=== PATIENT | male | born 1995 | race Caucasian/White ===

== ENCOUNTER 2017-02-25 04:05 | Emergency (ER) | payer OTHER ==
[2017-02-25] MEDS ORDERED: methylPREDNISolone 125 MG* 2 ML VIAL IV ONE (04:15)
[2017-02-25] MEDS ORDERED: Albuterol/Ipratropium NEB.SOL* Albuterol 2.5 MG/Ipratropium 0.5 MG 3 ML INH ONE (04:15)
[2017-02-25] MEDS ORDERED: NS 0.9% 1000 ML* 1,000 ML IV SCH (04:15)
[2017-02-25 05:44] LABS: Hematocrit 43 % (42-52); Hemoglobin 14.7 g/dl (14.0-18.0); Mean Corpuscular HGB Conc 34 g/dl (31-36); Mean Corpuscular Hemoglobin 29 pg (27-31); Mean Corpuscular Volume 84 fL (80-94); Mean Platelet Volume 9 um3 (7.4-10.4); Red Blood Count 5.12 10^6/ul (4.0-5.4); Red Cell Distribution Width 13 % (10.5-15); White Blood Count 4.5 10^3/ul (3.5-10.8)
[2017-02-25 06:06] LABS: Albumin 4.6 g/dL (3.2-5.2); BUN/Creatinine Ratio 22.1 (8-20); C Reactive Protein 5.2 mg/L (< 5.00); Calcium 9.5 mg/dL (8.6-10.3); EGFR African American 147.3 (>60); EGFR Non-African American 114.6 (>60); Globulin 2.6 g/dL (2-4); Magnesium 2.4 mg/dL (1.9-2.7); Potassium 3.6 mmol/L (3.5-5.0); Total Bilirubin 0.4 mg/dL (0.2-1.0); Total Protein 7.2 g/dL (6.4-8.9)
[2017-02-25 06:33] LABS: TSH (Thyroid Stimulating Horm) 1.9 mcIU/mL (0.34-5.60)
[2017-02-25] MEDS ORDERED: Albuterol HFA INHALER* 8 gm MDI INH ONE (06:46)
--- NOTE | 2017-02-25 06:50 | ED ---
Anjel Dyson Rebecca, scribed for Kishore Cervantes MD on 02/25/17 at 0432 . Shortness of Breath - HPI Summary HPI Summary: Pt is a 21 y/o M BIBA who presents to ED c/o SOB characterized as dyspnea at rest. Sx have been present for 2 days, worsening this morning when he was trying to sleep. States he is having difficulty taking deep breaths. Pt was given 1 Duoneb Tx [employer] by EMS. EMS treatments slightly alleviated sx, sx aggravated by nothing. Additionally c/o nasal congestion and mild sore throat. Denies CP, cough, rhinorrhea and calf pain. PMHx asthma and seasonal allergies. Confirms he has an inhaler, though he did not take it to school with him. - History of Current Complaint Hx Obtained From: Patient Onset/Duration: Lasting Days - 2 days, Still Present, Worse Since - this morning Dyspnea At: Rest Aggrevating Factors: Nothing Alleviating Factors: EMS Tx Associated Signs & Symptoms: Nasal Congestion - Allergy/Home Medications Allergies/Adverse Reactions: Allergies Allergy/AdvReac Type Severity Reaction Status Date / Time No Known Allergies Allergy Verified 02/25/17 04:15 PMH/Surg Hx/FS Hx/Imm Hx Endocrine/Hematology History: Denies: Hx Diabetes Respiratory History: Reports: Hx Asthma, Hx Seasonal Allergies - Family History Known Family History: Positive: Cardiac Disease - Social History Alcohol Use: None Substance Use Type: Reports: None Smoking Status (MU): Never Smoked Tobacco Review of Systems Positive: Sore Throat, Other - Nasal congestion. Negative: Nasal Discharge Negative: Chest Pain Positive: Shortness Of Breath. Negative: Cough Positive: Other - NEGATIVE: Calf pain All Other Systems Reviewed And Are Negative: Yes Physical Exam - Summary Physical Exam Summary: General: well-appearing, no pain distress Skin: warm, color reflects adequate perfusion, dry Head: normal Eyes: EOMI, LETICIA ENT: normal Neck: supple, nontender Respiratory: CTA, breath sounds present Cardiovascular: RRR Abdomen: soft, nontender Bowel: present Musculoskeletal: normal, strength/ROM intact Neurological: normal, sensory/motor intact, A&O x3 Psychological: anxious Triage Information Reviewed: Yes Vital Signs On Initial Exam: Initial Vitals Temp Pulse Resp BP Pulse Ox 98 F 66 18 123/75 98 02/25/17 04:05 02/25/17 04:05 02/25/17 04:05 02/25/17 04:05 02/25/17 04:05 Vital Signs Reviewed: Yes Diagnostics - Vital Signs Vital Signs Temp Pulse Resp BP Pulse Ox 02/25/17 06:00 69 98 02/25/17 05:32 80 99 02/25/17 05:30 123/83 02/25/17 04:53 79 97 02/25/17 04:31 73 20 100 02/25/17 04:05 98 F 66 18 123/75 98 - Laboratory Lab Results: Lab Results 02/25/17 02/25/17 02/25/17 Range/Units 05:30 05:30 05:30 WBC 4.5 (3.5-10.8) 10^3/ul RBC 5.12 (4.0-5.4) 10^6/ul Hgb 14.7 (14.0-18.0) g/dl Hct 43 (42-52) % MCV 84 (80-94) fL MCH 29 (27-31) pg MCHC 34 (31-36) g/dl RDW 13 (10.5-15) % Plt Count 158 (150-450) 10^3/ul MPV 9 (7.4-10.4) um3 Neut % (Auto) 42.9 (38-83) % Lymph % (Auto) 44.0 (25-47) % [place] % (Auto) 10.8 H (1-9) % Eos % (Auto) 1.8 (0-6) % Baso % (Auto) 0.5 (0-2) % Absolute Neuts (auto) 1.9 (1.5-7.7) 10^3/ul Absolute Lymphs (auto) 2.0 (1.0-4.8) 10^3/ul Absolute Monos (auto) 0.5 (0-0.8) 10^3/ul Absolute Eos (auto) 0.1 (0-0.6) 10^3/ul Absolute Basos (auto) 0 (0-0.2) 10^3/ul Absolute Nucleated RBC 0 10^3/ul Nucleated RBC % 0 INR (Anticoag Therapy) 0.93 (0.89-1.11) APTT 29.2 (26.0-36.3) seconds D-Dimer, Quantitative < 200 (Less Than 230) ng/mL Sodium 136 (133-145) mmol/L Potassium 3.6 (3.5-5.0) mmol/L Chloride 102 (101-111) mmol/L Carbon Dioxide 28 (22-32) mmol/L Anion Gap 6 (2-11) mmol/L BUN 19 (6-24) mg/dL Creatinine 0.86 (0.67-1.17) mg/dL Est GFR ( Amer) 147.3 (>60) Est GFR (Non-Af Amer) 114.6 (>60) BUN/Creatinine Ratio 22.1 H (8-20) Glucose 104 H (70-100) mg/dL Lactic Acid (0.5-2.0) mmol/L Calcium 9.5 (8.6-10.3) mg/dL Magnesium 2.4 (1.9-2.7) mg/dL Total Bilirubin 0.40 (0.2-1.0) mg/dL AST 14 (13-39) U/L ALT 16 (7-52) U/L Alkaline Phosphatase 39 (34-104) U/L Total Creatine Kinase 91 (10-223) U/L CK-MB (CK-2) 1.7 (0.6-6.3) ng/mL Troponin I 0.00 (<0.04) ng/mL C-Reactive Protein 5.20 H (< 5.00) mg/L B-Natriuretic Peptide ( - 100) pg/mL Total Protein 7.2 (6.4-8.9) g/dL Albumin 4.6 (3.2-5.2) g/dL Globulin 2.6 (2-4) g/dL Albumin/Globulin Ratio 1.8 (1-3) Lipase 16 (11.0-82.0) U/L TSH 1.90 (0.34-5.60) mcIU/mL 02/25/17 02/25/17 Range/Units 05:30 05:30 WBC (3.5-10.8) 10^3/ul RBC (4.0-5.4) 10^6/ul Hgb (14.0-18.0) g/dl Hct (42-52) % MCV (80-94) fL MCH (27-31) pg MCHC (31-36) g/dl RDW (10.5-15) % Plt Count (150-450) 10^3/ul MPV (7.4-10.4) um3 Neut % (Auto) (38-83) % Lymph % (Auto) (25-47) % [place] % (Auto) (1-9) % Eos % (Auto) (0-6) % Baso % (Auto) (0-2) % Absolute Neuts (auto) (1.5-7.7) 10^3/ul Absolute Lymphs (auto) (1.0-4.8) 10^3/ul Absolute Monos (auto) (0-0.8) 10^3/ul Absolute Eos (auto) (0-0.6) 10^3/ul Absolute Basos (auto) (0-0.2) 10^3/ul Absolute Nucleated RBC 10^3/ul Nucleated RBC % INR (Anticoag Therapy) (0.89-1.11) APTT (26.0-36.3) seconds D-Dimer, Quantitative (Less Than 230) ng/mL Sodium (133-145) mmol/L Potassium (3.5-5.0) mmol/L Chloride (101-111) mmol/L Carbon Dioxide (22-32) mmol/L Anion Gap (2-11) mmol/L BUN (6-24) mg/dL Creatinine (0.67-1.17) mg/dL Est GFR ( Amer) (>60) Est GFR (Non-Af Amer) (>60) BUN/Creatinine Ratio (8-20) Glucose (70-100) mg/dL Lactic Acid 1.0 (0.5-2.0) mmol/L Calcium (8.6-10.3) mg/dL Magnesium (1.9-2.7) mg/dL Total Bilirubin (0.2-1.0) mg/dL AST (13-39) U/L ALT (7-52) U/L Alkaline Phosphatase (34-104) U/L Total Creatine Kinase (10-223) U/L CK-MB (CK-2) (0.6-6.3) ng/mL Troponin I (<0.04) ng/mL C-Reactive Protein (< 5.00) mg/L B-Natriuretic Peptide 7 ( - 100) pg/mL Total Protein (6.4-8.9) g/dL Albumin (3.2-5.2) g/dL Globulin (2-4) g/dL Albumin/Globulin Ratio (1-3) Lipase (11.0-82.0) U/L TSH (0.34-5.60) mcIU/mL Result Diagrams: 02/25/17 05:30 02/25/17 05:30 Lab Statement: Any lab studies that have been ordered have been reviewed, and results considered in the medical decision making process. - Radiology CXR Xray Interpretation: No Acute Changes - NAD. Radiology Interpretation Completed By: ED Physician - EKG 0419 Cardiac Rate: NL EKG Rhythm: Sinus Rhythm - NSR, [address] Segment: Normal - NL ST Ectopy: None Re-Evaluation - Re-Evaluation First Eval Re-Evaluation Time: 06:46 Change: Improved Comment: patient sx have significantly improved Course/Dx - Course Assessment/Plan: Medications reviewed. Elevated BP noted and advised f/u with PCP. IMPROVED IN ED AFTER DUONEB AND SOLUMEDROL. DISCUSSED RESULTS WITH PATIENT. WILL GIVE ALBUTEROL INHALER; F/U [facility]; RETURN IF WORSE. PATIENT WONDERS IF ANXIETY CAUSED THE ATTACK HE HAS 2 PRELIMS COMING UP. CRITICAL CARE TIME LESS THAN 30 MINUTES. - Diagnoses Provider Diagnoses: Dyspnea Discharge - Discharge Plan Condition: Stable Disposition: HOME Patient Education Materials: Dyspnea (ED) Referrals: [facility] - [place]on ZAVALA [Primary Care Provider] - Additional Instructions: FOLLOW UP WITH [facility]. USE THE ALBUTEROL DIRECTED NEEDED IF HELPFUL. RETURN TO THE EMERGENCY DEPARTMENT FOR ANY WORSENING OF YOUR CONDITION OR QUESTIONS OR CONCERNS. The documentation as recorded by the Anjel tejada Rebecca accurately reflects the service I personally performed and the decisions made by me, Kishore Cervantes MD.
[2017-02-25 06:59] VITALS: BP 113/70
--- NOTE | 2017-02-25 08:23 | RAD ---
INDICATION: Shortness of breath. COMPARISON: There are no prior studies available for comparison. TECHNIQUE: Dual-energy PA and lateral views of the chest were obtained. FINDINGS: The heart is within normal limits in size. Mediastinal and hilar contours appear within normal limits. The lungs are clear. No pleural effusion is present. IMPRESSION: NO EVIDENCE FOR ACTIVE CARDIOPULMONARY DISEASE.
== END 2017-02-25 07:03 | disposition home or self-care (01) ==
LOC: ED 04:05 → MERGE 04:05 → ED 07:03
DX: R06.00 Dyspnea, unspecified (principal); R09.81 Nasal congestion; J02.9 Acute pharyngitis, unspecified; J45.909 Unspecified asthma, uncomplicated
CPT/HCPCS: 36415; 71020; 80053; 82550; 82553; 83605; 83690; 83735; 83880; 84443; 84484; 85025; 85379; 85610; 85730; 86140; 86703; 93005; 94640; 96374; 99283; A9270-GY; J2930

== ENCOUNTER 2018-01-09 21:23 | Emergency (ER) | payer OTHER ==
[2018-01-09] MEDS ORDERED: Ketorolac INJ* 30 MG/ML 1 ML VIAL IV PUSH ONE (21:49)
[2018-01-09] MEDS ORDERED: Acetaminophen TAB* 325 MG PO ONE (21:49)
[2018-01-09] MEDS ORDERED: NS 0.9% 1000 ML* 1,000 ML IV ONE (21:49)
[2018-01-09] MEDS ORDERED: Albuterol/Ipratropium NEB.SOL* Albuterol 2.5 MG/Ipratropium 0.5 MG 3 ML INH ONE (21:50)
[2018-01-09] MEDS ORDERED: Albuterol/Ipratropium NEB.SOL* Albuterol 2.5 MG/Ipratropium 0.5 MG 3 ML ONE (22:00)
[2018-01-09 22:08] LABS: ABS Basophils 0 10^3/ul (0-0.2); ABS Eosinophils 0 10^3/ul (0-0.6); ABS Lymphocytes 1.1 10^3/ul (1.0-4.8); ABS Monocytes 0.5 10^3/ul (0-0.8); ABS Neutrophils 3.3 10^3/ul (1.5-7.7); ABS Nucleated RBC 0 10^3/ul; Eosinophil % 0 % (0-6); Hematocrit 45 % (42-52); Hemoglobin 15.3 g/dl (14.0-18.0); Lymphocyte % 21.7 % (25-47); Mean Corpuscular HGB Conc 34 g/dl (31-36); Mean Corpuscular Hemoglobin 29 pg (27-31); Mean Corpuscular Volume 84 fL (80-94); Mean Platelet Volume 8.4 um3 (7.4-10.4); Nucleated Red Blood Cells % 0.2; Platelet Count 153 10^3/ul (150-450); Red Blood Count 5.34 10^6/ul (4.00-5.40); Red Cell Distribution Width 13 % (10.5-15); White Blood Count 4.9 10^3/ul (3.5-10.8)
[2018-01-09 22:26] LABS: EGFR Non-African American 79.5 (>60)
[2018-01-10] MEDS ORDERED: Levofloxacin TAB* 250 MG PO ONE (00:13)
--- NOTE | 2018-01-10 00:28 | ED ---
Shortness of Breath - HPI Summary HPI Summary: Patient is a 22 y/o M BIBA w/ c/o SOB exacerbation onsetting around 1400 today. He has Hx of asthma with anxiety and allergies as a cause and states that he has been experiencing intermittent episodes of SOB for the past year. Patient also reports cough as well with yellow/green phlegm. He also reports the presence of a MANSFIELD. Patient denies N/V/D. On triage, severity is rated 8/10 and nothing is noted to aggravate/alleviates Sx. Home medications and allergies are reviewed. - History of Current Complaint Chief Complaint: EDShortnessOfBreath Time Seen by Provider: 01/09/18 21:42 Hx Obtained From: Patient Onset/Duration: Lasting Hours - onset today at 1400, Still Present Current Severity: Severe - 8/10 Aggrevating Factors: Nothing Alleviating Factors: Nothing Associated Signs & Symptoms: Cough (Productive) - green/yellow phlegm - Allergy/Home Medications Allergies/Adverse Reactions: Allergies Allergy/AdvReac Type Severity Reaction Status Date / Time apple Allergy See Comment Verified 01/09/18 21:50 espinoza Allergy See Comment Verified 01/09/18 21:50 PMH/Surg Hx/FS Hx/Imm Hx Endocrine/Hematology History: Denies: Hx Diabetes, Hx Thyroid Disease Cardiovascular History: Denies: Hx Hypertension Respiratory History: Reports: Hx Asthma, Hx Seasonal Allergies Denies: Hx Chronic Obstructive Pulmonary Disease (COPD) GI History: Denies: Hx Ulcer - Immunization History Date of Tetanus Vaccine: utd Date of Influenza Vaccine: fall 2016 Immunizations Up to Date: Yes Infectious Disease History: No Infectious Disease History: Denies: Hx Hepatitis, Hx Human Immunodeficiency Virus (HIV), Traveled Outside the [place] in Last 30 Days - Family History Known Family History: Positive: Cardiac Disease - Social History Alcohol Use: None Substance Use Type: Reports: None Substance Use Comment - Amount & Last Used: Smoking Status (MU): Never Smoked Tobacco Review of Systems Positive: Shortness Of Breath, Cough - productive of green/yellow phlegm Negative: Vomiting, Diarrhea, Nausea Positive: Headache All Other Systems Reviewed And Are Negative: Yes Physical Exam - Summary Physical Exam Summary: Appearance: Anxious appearing, no pain distress Skin: warm, dry, reflects adequate perfusion Head/face: normal Eyes: EOMI, LETICIA ENT: normal Neck: supple, non-tender Respiratory: CTA, breath sounds present; tachypnea Cardiovascular: RRR, pulses symmetrical; no tachycardia Abdomen: non-tender, soft Bowel Sounds: present Musculoskeletal: normal, strength/ROM intact Neuro: normal, sensory motor intact, A&Ox3 Triage Information Reviewed: Yes Vital Signs On Initial Exam: Initial Vitals Pulse BP Pulse Ox 105 144/87 97 01/09/18 21:34 01/09/18 21:34 01/09/18 21:34 Vital Signs Reviewed: Yes Diagnostics - Vital Signs Vital Signs Temp Pulse Resp BP Pulse Ox 01/09/18 23:36 102.5 F 01/09/18 23:11 121 126/70 94 01/09/18 22:06 114 100 01/09/18 22:04 113 135/86 100 01/09/18 22:00 104 100 01/09/18 21:39 103.3 F 107 18 144/87 99 01/09/18 21:34 105 144/87 97 - Laboratory Lab Results: Lab Results 01/09/18 01/09/18 01/09/18 Range/Units 21:53 21:53 21:53 WBC 4.9 (3.5-10.8) 10^3/ul RBC 5.34 (4.00-5.40) 10^6/ul Hgb 15.3 (14.0-18.0) g/dl Hct 45 (42-52) % MCV 84 (80-94) fL MCH 29 (27-31) pg MCHC 34 (31-36) g/dl RDW 13 (10.5-15) % Plt Count 153 (150-450) 10^3/ul MPV 8.4 (7.4-10.4) um3 Neut % (Auto) 67.7 (38-83) % Lymph % (Auto) 21.7 L (25-47) % [place] % (Auto) 10.1 H (0-7) % Eos % (Auto) 0 (0-6) % Baso % (Auto) 0.5 (0-2) % Absolute Neuts (auto) 3.3 (1.5-7.7) 10^3/ul Absolute Lymphs (auto) 1.1 (1.0-4.8) 10^3/ul Absolute Monos (auto) 0.5 (0-0.8) 10^3/ul Absolute Eos (auto) 0 (0-0.6) 10^3/ul Absolute Basos (auto) 0 (0-0.2) 10^3/ul Absolute Nucleated RBC 0 10^3/ul Nucleated RBC % 0.2 D-Dimer, Quantitative < 200 (Less Than 230) ng/mL Sodium 133 L (135-145) mmol/L Potassium 3.6 (3.5-5.0) mmol/L Chloride 97 L (101-111) mmol/L Carbon Dioxide 25 (22-32) mmol/L Anion Gap 11 (2-11) mmol/L BUN 14 (6-24) mg/dL Creatinine 1.17 (0.67-1.17) mg/dL Est GFR ( Amer) 96.2 (>60) Est GFR (Non-Af Amer) 79.5 (>60) BUN/Creatinine Ratio 12.0 (8-20) Glucose 94 (70-100) mg/dL Calcium 9.7 (8.6-10.3) mg/dL C-Reactive Protein 75.35 H (<8.01) mg/L Monoscreen Negative (Negative) Result Diagrams: 01/09/18 21:53 01/09/18 21:53 Lab Statement: Any lab studies that have been ordered have been reviewed, and results considered in the medical decision making process. - Radiology CXR Xray Interpretation: Positive (See Comments) Radiology Interpretation Completed By: ED Physician - right lower infiltrate Re-Evaluation - Re-Evaluation First Eval Re-Evaluation Time: 00:45 Change: Improved Comment: Patient is better after breathing treatment. He will be discharged to home and is agreeable with this plan. Course/Dx - Course Course Of Treatment: College student with fever, shortness of breath and developing infiltrate in the right lower lobe. Breathing treatments, fluids and treatment of fever here greatly relieved his symptoms. Started oral Levaquin here and will have him continue, follow closely with [facility]. - Diagnoses Differential Diagnosis/HQI/PQRI: Positive: Asthma, Bronchitis, Pneumonia, Other - Mononucleosis, viral etiology Provider Diagnoses: Pneumonia Discharge - Sign-Out/Discharge Documenting (check all that apply): Patient Departure - discharge - Discharge Plan Condition: Improved Disposition: HOME Prescriptions: Albuterol HFA INHALER* [Ventolin HFA Inhaler*] 2 puff INH Q4H PRN #1 mdi PRN Reason: Shortness Of Breath guaiFENesin [Mucinex] 600 mg PO BID #20 tab.er.12h Levofloxacin TAB* [Levaquin TAB*] 750 mg PO DAILY #6 tab Patient Education Materials: Community Acquired Pneumonia (ED) Forms: *School Release Referrals: [facility] - [place]on ZAVALA [Primary Care Provider] - Additional Instructions: Call first thing in the morning for an appointment with [facility]. Off school until the weekend. Return if increasing shortness of breath, continued fevers, worse or other concerns. Take Tylenol, ibuprofen as needed for fever. With persistent shortness of breath after infection is gone see [facility] who may be older refer you for pulmonary function testing. - Billing Disposition and Condition Condition: IMPROVED Disposition: Home - Attestation Statements Document Initiated by Abdiaziz: Yes Documenting Scribe: Jay Heredia Provider For Whom Abdiaziz is Documenting (Include Credential): Leonel Yip MD Scribe Attestation: I, Jay Heredia, scribed for Leonel Yip MD on 01/10/18 at 0639. Scribe Documentation Reviewed: Yes Provider Attestation: The documentation as recorded by the Jay tejada accurately reflects the service I personally performed and the decisions made by me, Leonel Yip MD
[2018-01-10 01:31] VITALS: BP 109/67
--- NOTE | 2018-01-10 07:45 | RAD ---
INDICATION: Short of breath COMPARISON: February 25, 2017 TECHNIQUE: PA and lateral dual-energy views were obtained. FINDINGS: Bones/Soft Tissues: There are no acute bony findings. Cardiomediastinal: The cardiomediastinal silhouette is normal. Lungs: There is a small peripheral interstitial infiltrate in the right lung base. The remaining lung delatorre are clear. Pleura: There are no pleural effusions. Other: None IMPRESSION: Right-sided pneumonitis. R0
== END 2018-01-10 00:50 | disposition home or self-care (01) ==
LOC: EDBD → ED 21:23
DX: J18.9 Pneumonia, unspecified organism (principal)
CPT/HCPCS: 36415; 71046; 80048; 85025; 85379; 86140; 86308; 96374; 99283; A9270-GY; J1885

== ENCOUNTER 2019-01-12 19:31 | Emergency (ER) | payer OTHER ==
[2019-01-12 19:39] VITALS: BP 117/76
--- NOTE | 2019-01-12 19:53 | ED ---
Palpitations / Dysrhythmia - HPI Summary HPI Summary: This patient is a 23 year old male presenting to [facility] with a chief complaint of palpitations 40 minutes ago. The patient states he was sitting and that his heart felt like it was popping out of its chest. He states he would feel many discrete, brief palpitations. He states it was getting worse once he called EMS. He describes it like a "vibration". He denies chest pain. He states he was having difficulty breathing and light headedness. He states he has had changes in his diet that he states he has been cleaning up. He states that he just moved back into school a couple days ago. He states he has just started getting on a new workout and diet routine. He states his father had an aortic valve replacement 12 years ago. - History of Current Complaint Chief Complaint: EDDysrhythmPalp Time Seen by Provider: 01/12/19 19:46 Hx Obtained From: Patient - Allergy/Home Medications Allergies/Adverse Reactions: Allergies Allergy/AdvReac Type Severity Reaction Status Date / Time No Known Allergies Allergy Verified 01/12/19 19:39 Home Medications: Home Medications Cholecalciferol (Vitamin D3) [Vitamin D3] 1,000 unit PO DAILY 01/12/19 [History Confirmed 01/12/19] PMH/Surg Hx/FS Hx/Imm Hx Endocrine/Hematology History: Denies: Hx Diabetes, Hx Thyroid Disease Cardiovascular History: Denies: Hx Hypertension Respiratory History: Reports: Hx Asthma, Hx Seasonal Allergies Denies: Hx Chronic Obstructive Pulmonary Disease (COPD) GI History: Denies: Hx Ulcer - Immunization History Date of Tetanus Vaccine: utd Date of Influenza Vaccine: fall 2016 Infectious Disease History: No Infectious Disease History: Denies: Hx Hepatitis, Hx Human Immunodeficiency Virus (HIV), Traveled Outside the [place] in Last 30 Days - Family History Known Family History: Positive: Cardiac Disease - Social History Alcohol Use: None Substance Use Type: Reports: None Substance Use Comment - Amount & Last Used: Smoking Status (MU): Never Smoked Tobacco Review of Systems Positive: Palpitations. Negative: Chest Pain Positive: Shortness Of Breath Neurological: Other - Light-headedness All Other Systems Reviewed And Are Negative: Yes Physical Exam - Summary Physical Exam Summary: Appearance: Well-appearing, Well-nourished, lying in bed comfortably Skin: Warm, dry, no obvious rash Eyes: sclera anicteric, no conjunctival pallor ENT: mucous membranes moist, pharynx appears normal Neck: Supple, nontender Respiratory: Clear to auscultation, no signs of respiratory distress Cardiovascular: Normal S1, S2. No murmurs. Normal distal pulses in tibial and radial bilaterally. Abdomen: Soft, nontender, normal active bowel sounds present Musculoskeletal: Normal, Strength/ROM Intact Neurological: A&Ox3, awake and alert, mentation is normal, speech is fluent and appropriate Psychiatric: affect is normal, does not appear anxious or depressed Triage Information Reviewed: Yes Vital Signs On Initial Exam: Initial Vitals Temp Pulse Resp BP Pulse Ox 98.8 F 81 18 117/76 100 01/12/19 19:34 01/12/19 19:34 01/12/19 19:34 01/12/19 19:34 01/12/19 19:34 Vital Signs Reviewed: Yes Diagnostics - Vital Signs Vital Signs Temp Pulse Resp BP Pulse Ox 01/12/19 19:34 98.8 F 81 18 117/76 100 - Laboratory Lab Statement: Any lab studies that have been ordered have been reviewed, and results considered in the medical decision making process. - EKG 1933 Cardiac Rate: NL - 84 BPM EKG Rhythm: Sinus Rhythm Summary of EKG Findings: NSR at 84 BPM, P waves, QRS complex, and T waves are within normal limits, T waves and intervals are normal, no ischemic changes. This is a normal EKG. Course/Dx - Course Course Of Treatment: This patient is a 23 year old male presenting to [facility] with a chief complaint of palpitations 40 minutes ago. The patients physical exam was unremarkable. His EKG was unremarkable for cardiovascular problems. From the patient's narrative he seems to be experiencing PACs. The patient was instructed on how to manage this problem. A plan for discharge was discussed with the patient and he was agreeable with this tplan. - Diagnoses Provider Diagnoses: PAC (premature atrial contraction), Palpitations Discharge ED - Sign-Out/Discharge Documenting (check all that apply): Patient Departure - Discharge Patient Received Moderate/Deep Sedation with Procedure: No - Discharge Plan Condition: Stable Disposition: HOME Patient Education Materials: Heart Palpitations (ED), Premature Atrial Contractions (ED) Referrals: [facility] - [place]on ZAVALA [Primary Care Provider] - If Needed Additional Instructions: If this sensation becomes sustained for more than 30 mins continuously, I would recommend coming back so we can recheck the heart rhythm, but from what you tell me I am quite sure that this is a benign phenomenon and not a cause for concern. If you continue to experience these periodically, I would recommend keeping track of your diet, as sometimes chemical in food can cause this. You may find something that is related to the symptoms. If that doesn't help, going to see a station tender might be in order, they may want to order an ambulatory heart rhythm monitoring test. - Billing Disposition and Condition Condition: STABLE Disposition: Home - Attestation Statements Document Initiated by Abdiaziz: Yes Documenting Scribe: Maikol Dumont Provider For Whom Abdiaziz is Documenting (Include Credential): Charlie Lee MD Scribe Attestation: IMaikol, scribed for Charlie Lee MD on 01/13/19 at 0533. Scribe Documentation Reviewed: Yes Provider Attestation: The documentation as recorded by the Maikol tejada accurately reflects the service I personally performed and the decisions made by me, Charlie Lee MD Status of Scribe Document: Viewed
== END 2019-01-12 20:06 | disposition home or self-care (01) ==
LOC: ED 19:31
DX: I49.1 Atrial premature depolarization (principal); R00.2 Palpitations; R06.02 Shortness of breath; R42 Dizziness and giddiness
CPT/HCPCS: 93005; 99282

== ENCOUNTER 2019-01-13 14:30 | Emergency (ER) | payer OTHER ==
--- NOTE | 2019-01-13 15:24 | ED ---
HPI Chest Pain - HPI Summary HPI Summary: This patient is a 23 year old M presenting to [facility] with a chief complaint of intermittent episodes of sharp chest pain rated 2/10 in severity since minutes prior to arrival. Patient reports bradycardia and occasional difficulty breathing. Patient denies bilateral lower extermity swelling. Patient states that his heart feels off." Symptoms aggravated by deep breathing. Symptoms alleviated by nothing. Patient previously seen on 01/12/19 in ED for palpitations. Patient states that he did a [address] on 01/08/19 (5 days ago) and denies any other recent travel. - History of Current Complaint Chief Complaint: EDDysrhythmPalp Time Seen by Provider: 01/13/19 15:01 Hx Obtained From: Patient Onset/Duration: Started Days Ago - 01/12/19, Still Present Timing: Intermittent Current Severity: Mild Pain Intensity: 2 Pain Scale Used: 0-10 Numeric Character: Slow Aggravating Factor(s): Deep Breaths Alleviating Factor(s): Nothing Associated Signs and Symptoms: Positive: Negative - bilateral lower extremity swelling, Other: - bradycardia and occasional difficutly breathing Related History: Similar Episode/Dx as: - palpatations on 01/12/19 - Allergy/Home Medications Allergies/Adverse Reactions: Allergies Allergy/AdvReac Type Severity Reaction Status Date / Time No Known Allergies Allergy Verified 01/13/19 14:36 PMH/Surg Hx/FS Hx/Imm Hx Endocrine/Hematology History: Denies: Hx Diabetes, Hx Thyroid Disease Cardiovascular History: Denies: Hx Hypertension Respiratory History: Reports: Hx Asthma, Hx Seasonal Allergies Denies: Hx Chronic Obstructive Pulmonary Disease (COPD) GI History: Denies: Hx Ulcer - Surgical History Surgical History: Yes Surgery Procedure, Year, and Place: Septoplasty July 2018 - Immunization History Date of Tetanus Vaccine: utd Date of Influenza Vaccine: fall 2016 Infectious Disease History: No Infectious Disease History: Denies: Hx Hepatitis, Hx Human Immunodeficiency Virus (HIV), Traveled Outside the [place] in Last 30 Days - Family History Known Family History: Positive: Cardiac Disease - Social History Alcohol Use: None Substance Use Type: Reports: None Hx Tobacco Use: No Smoking Status (MU): Never Smoked Tobacco Review of Systems Positive: Chest Pain, Other - bradycardia Positive: Shortness Of Breath Musculoskeletal: Negative - Bilateral lower extremity swelling All Other Systems Reviewed And Are Negative: Yes Physical Exam - Summary Physical Exam Summary: Appearance: The patient is well-nourished in no acute distress and in no acute pain. Skin: The skin is warm and dry and skin color reflects adequate perfusion. HEENT: The head is normocephalic and atraumatic. The pupils are equal and reactive. The conjunctivae are clear and without drainage. Nares are patent and without drainage. Mouth reveals moist mucous membranes and the throat is without erythema and exudate. The external ears are intact. The ear canals are patent and without drainage. The tympanic membranes are intact. Neck: The neck is supple with full range of motion and non-tender. There are no carotid bruits. There is no neck vein distension. Respiratory: Chest is non-tender. Lungs are clear to auscultation and breath sounds are symmetrical and equal. Cardiovascular: Heart is regular rate and rhythm. There is no murmur or rub auscultated. There is no peripheral edema and pulses are symmetrical and equal. Abdomen: The abdomen is soft and non-tender. There are normal bowel sounds heard in all four quadrants and there is no organomegaly palpated. Musculoskeletal: There is no back tenderness noted. Extremities are non-tender with full range of motion. There is good capillary refill. There is no peripheral edema or calf tenderness elicited. Neurological: Patient is alert and oriented to person, place and time. The patient has symmetrical motor strength in all four extremities. Cranial nerves are grossly intact. Deep tendon reflexes are symmetrical and equal in all four extremities. Triage Information Reviewed: Yes Vital Signs On Initial Exam: Initial Vitals Temp Pulse Resp BP Pulse Ox 98.4 F 74 16 112/89 99 01/13/19 14:34 01/13/19 14:34 01/13/19 14:34 01/13/19 14:34 01/13/19 14:34 Vital Signs Reviewed: Yes Diagnostics - Vital Signs Vital Signs Temp Pulse Resp BP Pulse Ox 01/13/19 14:34 98.4 F 74 16 112/89 99 - Laboratory Result Diagrams: 01/13/19 15:35 01/13/19 15:35 Lab Statement: Any lab studies that have been ordered have been reviewed, and results considered in the medical decision making process. - Radiology Chest Xray Radiology Interpretation Completed By: Radiologist Summary of Radiographic Findings: IMPRESSION: No active cardiopulmonary disease is noted. ED Physician has reviewed this report. - EKG 1528 Cardiac Rate: NL - 65 BPM EKG Rhythm: Sinus Rhythm ST Segment: Normal Ectopy: None Summary of EKG Findings: Normal sinus rhythm at 65 bpm, normal ST, no ectopy, no STEMI Chest Pain Course/Dx - Course Course Of Treatment: Mr. Galarza presented with a concern that he wasn't feeling right and pointing to his chest. He couldn't elaborate much was not having the same buzzing that he had the other night. He was placed on the monitor while labs were obtained. He was nontoxic in appearance with stable vitals. His labs at change some's since the with the CRP elevation, a leukopenia and a decreased ANC. This time a year I'm concerned for a tickborne illness. I did not see any ectopy or skipped beats on either EKG or the monitor. I'm going to start him on doxycycline and send off the outpatient labs. I'll have him follow-up at [facility]. - Diagnoses Provider Diagnoses: Tick-borne disease Discharge ED - Sign-Out/Discharge Documenting (check all that apply): Patient Departure - discharge Patient Received Moderate/Deep Sedation with Procedure: No - Discharge Plan Condition: Stable Disposition: HOME Prescriptions: DOXYcycline CAP(*) [DOXYcycline 100MG CAP(*)] 100 mg PO BID #42 cap Patient Education Materials: Lyme Disease (ED) Referrals: [facility] [Outside] - 3 Days Additional Instructions: Follow up with [facility] within 2 to 3 days. Return to Emergency Department for new or worsening symptoms such as fever or headache. - Billing Disposition and Condition Condition: STABLE Disposition: Home - Attestation Statements Document Initiated by Abdiaziz: Yes Documenting Scribe: Leatha Martin Provider For Whom Abdiaziz is Documenting (Include Credential): Charlie Chand MD Scribe Attestation: Leatha Dyson scribed for Charlie Chand MD on 01/13/19 at 1837. Scribe Documentation Reviewed: Yes Provider Attestation: The documentation as recorded by the pitoibeLeatha accurately reflects the service I personally performed and the decisions made by me, Charlie Chand MD Status of Scribe Document: Viewed
[2019-01-13 15:50] LABS: Hematocrit 45 % (42-52); Hemoglobin 15.4 g/dL (14.0-18.0); Mean Corpuscular HGB Conc 35 g/dL (31-36); Mean Corpuscular Hemoglobin 29 pg (27-31); Mean Corpuscular Volume 84 fL (80-94); Mean Platelet Volume 8.5 fL (7.4-10.4); Platelet Count 193 10^3/uL (150-450); Red Blood Count 5.27 10^6 /uL (4.18-5.48); Red Cell Distribution Width 13 % (10-15); White Blood Count 2.8 10^3/uL (3.5-10.8)
[2019-01-13 15:52] LABS: ABS Neutrophils 0.7 10^3/ul (1.5-7.7)
[2019-01-13 16:03] LABS: Albumin 4.6 g/dL (3.2-5.2); Albumin/Globulin Ratio 1.9 (1-3); BUN/Creatinine Ratio 15.6 (8-20); Calcium 9.8 mg/dL (8.6-10.3); EGFR African American 119.6 (>60); EGFR Non-African American 98.9 (>60); Globulin 2.4 g/dL (2-4); Magnesium 2.1 mg/dL (1.9-2.7); Potassium 3.9 mmol/L (3.5-5.0); Total Bilirubin 0.5 mg/dL (0.2-1.0)
[2019-01-13 16:38] LABS: ABS Eosinophils 0.1 10^3/ul (0-0.6); ABS Lymphocytes 1.7 10^3/ul (1.0-4.8); ABS Monocytes 0.3 10^3/ul (0-0.8); Eosinophil % 2.9 %; Lymphocyte % 60.2 %; Nucleated Red Blood Cells % 0.2
[2019-01-13 16:41] LABS: TSH (Thyroid Stimulating Horm) 0.85 mcIU/mL (0.34-5.60)
[2019-01-13] MEDS ORDERED: DOXYcycline CAP(*) 100 MG PO ONE (17:53)
[2019-01-13 18:09] VITALS: BP 117/76
[2019-01-16 17:49] LABS: Anaplasma phagocytophilum Negative (Negative); B. miyamotoi PCR, B Negative (Negative); Babesia divergens/MO-1 Negative (Negative); Babesia ducani Negative (Negative); Ehrlichia chaffeensis Negative (Negative); Ehrlichia ewingii/canis Negative (Negative); Ehrlichia muris eauclairensis Negative (Negative)
== END 2019-01-13 18:09 | disposition home or self-care (01) ==
LOC: ED 14:30
DX: A84.8 Other tick-borne viral encephalitis (principal); Z79.899 Other long term (current) drug therapy
CPT/HCPCS: 36415; 71046; 80053; 83605; 83735; 84443; 84484; 85025; 85060; 85379; 86618; 87798; 93005; 99282; A9270-GY

== ENCOUNTER 2019-02-25 22:24 | Emergency (ER) | payer OTHER ==
[2019-02-26 01:12] LABS: ABS Eosinophils 0.1 10^3/ul (0-0.6); ABS Lymphocytes 2.1 10^3/ul (1.0-4.8); ABS Monocytes 0.4 10^3/ul (0-0.8); ABS Neutrophils 1.5 10^3/ul (1.5-7.7); Eosinophil % 1.6 %; Hematocrit 46 % (42-52); Hemoglobin 15.4 g/dL (14.0-18.0); Lymphocyte % 51.2 %; Mean Corpuscular HGB Conc 34 g/dL (31-36); Mean Corpuscular Hemoglobin 29 pg (27-31); Mean Corpuscular Volume 86 fL (80-94); Mean Platelet Volume 8.9 fL (7.4-10.4); Nucleated Red Blood Cells % 0.2; Platelet Count 193 10^3/uL (150-450); Red Cell Distribution Width 14 % (10-15)
[2019-02-26 01:29] LABS: Albumin 4.5 g/dL (3.2-5.2); Albumin/Globulin Ratio 1.9 (1-3); BUN/Creatinine Ratio 17.5 (8-20); C Reactive Protein 1.55 mg/L (<8.01); Calcium 9.5 mg/dL (8.6-10.3); EGFR African American 98.1 (>60); EGFR Non-African American 81.1 (>60); Globulin 2.4 g/dL (2-4); Magnesium 2.5 mg/dL (1.9-2.7); Potassium 4.1 mmol/L (3.5-5.0); Total Bilirubin 0.5 mg/dL (0.2-1.0); Total Protein 6.9 g/dL (6.4-8.9)
--- NOTE | 2019-02-26 01:31 | ED ---
Palpitations / Dysrhythmia - HPI Summary HPI Summary: 23 year male presents with intermittent palpitations. He states he feels like his heart is racing. He states is not currently having any symptoms. He states he admits to little bit of lightheadedness that has resolved. He also admits to occasional shortness of breath. He denies any recent illness. No cough. No chest pain. No bowel pain. He states that he has not been eating or drinking well. He states he has been exercising more and may be dehydrated. Father had an aortic valve replacement. Has history asthma. - History of Current Complaint Chief Complaint: EDDizziness Time Seen by Provider: 02/26/19 00:35 - Allergy/Home Medications Allergies/Adverse Reactions: Allergies Allergy/AdvReac Type Severity Reaction Status Date / Time No Known Allergies Allergy Verified 01/13/19 14:36 PMH/Surg Hx/FS Hx/Imm Hx Endocrine/Hematology History: Denies: Hx Diabetes, Hx Thyroid Disease Cardiovascular History: Denies: Hx Hypertension Respiratory History: Reports: Hx Asthma, Hx Seasonal Allergies Denies: Hx Chronic Obstructive Pulmonary Disease (COPD) GI History: Denies: Hx Ulcer - Surgical History Surgery Procedure, Year, and Place: July 2018 - Immunization History Date of Tetanus Vaccine: utd Date of Influenza Vaccine: fall 2016 Infectious Disease History: No Infectious Disease History: Denies: Hx Hepatitis, Hx Human Immunodeficiency Virus (HIV), Traveled Outside the [place] in Last 30 Days - Family History Known Family History: Positive: Cardiac Disease - Social History Alcohol Use: None Substance Use Type: Reports: None Substance Use Comment - Amount & Last Used: Hx Tobacco Use: No Smoking Status (MU): Never Smoked Tobacco Review of Systems Negative: Fever Positive: Palpitations. Negative: Chest Pain Positive: Shortness Of Breath All Other Systems Reviewed And Are Negative: Yes Physical Exam Triage Information Reviewed: Yes Vital Signs On Initial Exam: Initial Vitals Temp Pulse Resp BP Pulse Ox 98.7 F 71 16 118/77 97 02/25/19 22:33 02/25/19 22:33 02/25/19 22:33 02/25/19 22:33 02/25/19 22:33 Vital Signs Reviewed: Yes Appearance: Positive: Well-Appearing Skin: Positive: Warm, Dry Head/Face: Positive: Normal Head/Face Inspection Eyes: Positive: Normal, EOMI, LETICIA, Conjunctiva Clear ENT: Positive: Normal ENT inspection, Pharynx normal, TMs normal Respiratory/Lung Sounds: Positive: Clear to Auscultation, Breath Sounds Present Cardiovascular: Positive: Normal, RRR Musculoskeletal: Positive: Normal Neurological: Positive: Normal Psychiatric: Positive: Normal Procedures - Sedation Patient Received Moderate/Deep Sedation with Procedure: No Diagnostics - Vital Signs Vital Signs Temp Pulse Resp BP Pulse Ox 02/25/19 22:33 98.7 F 71 16 118/77 97 - Laboratory Lab Results: Lab Results 02/26/19 02/26/19 Range/Units 01:03 01:03 WBC 4.0 (3.5-10.8) 10^3/uL RBC 5.30 (4.18-5.48) 10^6 /uL Hgb 15.4 (14.0-18.0) g/dL Hct 46 (42-52) % MCV 86 (80-94) fL MCH 29 (27-31) pg MCHC 34 (31-36) g/dL RDW 14 (10-15) % Plt Count 193 (150-450) 10^3/uL MPV 8.9 (7.4-10.4) fL Neut % (Auto) 37.1 % Lymph % (Auto) 51.2 % Johnson % (Auto) 9.4 % Eos % (Auto) 1.6 % Baso % (Auto) 0.7 % Absolute Neuts (auto) 1.5 (1.5-7.7) 10^3/ul Absolute Lymphs (auto) 2.1 (1.0-4.8) 10^3/ul Absolute Monos (auto) 0.4 (0-0.8) 10^3/ul Absolute Eos (auto) 0.1 (0-0.6) 10^3/ul Absolute Basos (auto) 0.0 (0-0.2) 10^3/ul Absolute Nucleated RBC 0.0 10^3/ul Nucleated RBC % 0.2 D-Dimer, Quantitative < 200 (Less Than 230) ng/mL Result Diagrams: 02/26/19 01:03 02/26/19 01:03 Lab Statement: Any lab studies that have been ordered have been reviewed, and results considered in the medical decision making process. - EKG No standard instances Cardiac Rate: NL EKG Rhythm: Sinus Rhythm EKG Comparison: No Significant Change Summary of EKG Findings: sinus rhythm Course/Dx - Course Course Of Treatment: 23 year male presents with intermittent palpitations. He states he feels like his heart is racing. He states is not currently having any symptoms. He states he admits to little bit of lightheadedness that has resolved. He also admits to occasional shortness of breath. He denies any recent illness. No cough. No chest pain. No bowel pain. He states that he has not been eating or drinking well. He states he has been exercising more and may be dehydrated. Father had an aortic valve replacement. Has history asthma. On exam lungs clear to auscultation. Heart regular rate and rhythm. EKG shows sinus rhythm. Lab work without significant abnormality. We'll have follow-up with cardiology has been seen multiple times for palpitations. Patient understands and agrees with plan. - Diagnoses Differential Diagnosis/HQI/PQRI: Positive: Hypokalemia, Pulmonary Embolism, Other - electrolyte abnormality Provider Diagnoses: Palpitations Discharge ED - Sign-Out/Discharge Documenting (check all that apply): Patient Departure - Discharge Plan Condition: Good Disposition: HOME Patient Education Materials: Heart Palpitations (ED) Referrals: Dev Paz MD [Medical Doctor] - Additional Instructions: follow up with cardiology Make sure to drink plenty of fluids reduce stress Return to ED if develop any new or worsening symptoms - Billing Disposition and Condition Condition: GOOD Disposition: Home
[2019-02-26 01:39] VITALS: BP 130/74
[2019-02-26 01:45] LABS: TSH (Thyroid Stimulating Horm) 1.05 mcIU/mL (0.34-5.60)
== END 2019-02-26 01:35 | disposition home or self-care (01) ==
LOC: ED 22:24
DX: R00.2 Palpitations (principal); R06.02 Shortness of breath
CPT/HCPCS: 36415; 80053; 83735; 84443; 85025; 85379; 86140; 93005; 99282

== ENCOUNTER 2019-04-24 18:24 | Emergency (ER) | payer OTHER ==
--- OUTSIDE RECORDS SUMMARY | 2019-04-24 19:37 | XMS REPORT | Continuity of Care Document ---
:1995 External Reference #:[id number] Author Name Lexus Roberts PA-C Address [address] [place] [address] Care Team Providers Name Role Phone [facility] Service Care Team Information Equipment Monitor Phototypesetting Problems Active Problems Provider Date Sensorineural hearing loss Jere Montano MD Onset: 04/26/2017 Impacted cerumen Jere Montano MD Onset: 04/26/2017 Social History Type Date Description Comments Sex Unknown Tobacco Use Start: Unknown Never Smoked Cigarettes Tobacco Use Start: Unknown Never Smoked Cigars Tobacco Use Start: Unknown Never Smoked A Pipe Smokeless Tobacco Never Used Smokeless Tobacco ETOH Use Does not drink alcohol Allergies, Adverse Reactions, Alerts Description No Known Drug Allergies Medications Active Medications SIG Qnty Indications Ordering Provider Date Cetirizine HCL daily Self Tablets Immunizations Description No Information Available Vital Signs Date Vital Result Comment 03/07/2019 10:39am Weight 198.00 lb Weight 89.813 kg Height 68 inches 5'8" Height in cm's 172.7 cm BMI (Body Mass Index) 30.1 kg/m2 04/26/2017 10:45am BP Systolic 126 mmHg BP Diastolic 88 mmHg Heart Rate 64 /min Respiratory Rate 17 /min Weight 170.00 lb Weight 77.112 kg Height 69 inches 5'9" Height in cm's 175.3 cm BMI (Body Mass Index) 25.1 kg/m2 Body Mass Index Percentile 77 % Results Description No Information Available Procedures Date Code Description Status 03/07/2019 72826 Removal Wax Impaction Completed Medical Devices Description No Information Available Encounters Description No Information Available Assessments Date Code Description Provider 03/07/2019 H61.23 Impacted cerumen, bilateral Lexus Roberts PA-C Plan of Treatment 03/07/2019 - CHIDI Josue-[id number] Impacted cerumen, bilateralFollow up:2 months ear care [facility] Functional Status Description No Information Available Mental Status Description No Information Available Referrals Description No Information Available
[2019-04-24] MEDS ORDERED: hydrOXYzine HCL TAB* 25 MG PO ONE (21:00)
--- NOTE | 2019-04-24 21:10 | ED ---
Complex/Multi-Sys Presentation - HPI Summary HPI Summary: 24-year-old male presents with potentially anxiety attack today. He states that he was standing when he developed palpitations. He states that he stepped away from studying and they resolved. He states they try to study happened again. States that try to study again and it came back again. Denies any chest or shortness of breath currently. He states he still feels a little anxious. Does not currently have palpitations. No nausea and vomiting. No recent illness. Has a history of asthma. No family history of blood clots. Denies any recent travel. No pain or swelling calf muscles. - History Of Current Complaint Chief Complaint: EDGeneral Time Seen by Provider: 04/24/19 20:47 - Allergies/Home Medications Allergies/Adverse Reactions: Allergies Allergy/AdvReac Type Severity Reaction Status Date / Time No Known Allergies Allergy Verified 04/24/19 18:31 PMH/Surg Hx/FS Hx/Imm Hx Endocrine/Hematology History: Denies: Hx Diabetes, Hx Thyroid Disease Cardiovascular History: Denies: Hx Hypertension Respiratory History: Reports: Hx Asthma, Hx Seasonal Allergies Denies: Hx Chronic Obstructive Pulmonary Disease (COPD) GI History: Denies: Hx Ulcer - Surgical History Surgery Procedure, Year, and Place: July 2018 - Immunization History Date of Tetanus Vaccine: utd Date of Influenza Vaccine: fall 2016 Infectious Disease History: No Infectious Disease History: Denies: Hx Hepatitis, Hx Human Immunodeficiency Virus (HIV), Traveled Outside the [place] in Last 30 Days - Family History Known Family History: Positive: Cardiac Disease - Social History Alcohol Use: None Substance Use Type: Reports: None Substance Use Comment - Amount & Last Used: Hx Tobacco Use: No Smoking Status (MU): Never Smoked Tobacco Review of Systems Negative: Fever Positive: Palpitations. Negative: Chest Pain Negative: Shortness Of Breath All Other Systems Reviewed And Are Negative: Yes Physical Exam Triage Information Reviewed: Yes Vital Signs On Initial Exam: Initial Vitals Temp Pulse Resp BP Pulse Ox 98.1 F 89 16 135/78 97 04/24/19 18:28 04/24/19 18:28 04/24/19 18:28 04/24/19 18:28 04/24/19 18:28 Vital Signs Reviewed: Yes Appearance: Positive: Well-Appearing Skin: Positive: Warm, Dry Head/Face: Positive: Normal Head/Face Inspection Eyes: Positive: Normal, Conjunctiva Clear ENT: Positive: Pharynx normal Respiratory/Lung Sounds: Positive: Clear to Auscultation, Breath Sounds Present Cardiovascular: Positive: Normal, RRR Abdomen Description: Positive: Nontender, Soft Bowel Sounds: Positive: Present Musculoskeletal: Positive: Normal Neurological: Positive: Normal Psychiatric: Positive: Normal Procedures - Sedation Patient Received Moderate/Deep Sedation with Procedure: No Diagnostics - Vital Signs Vital Signs Temp Pulse Resp BP Pulse Ox 04/24/19 18:29 98.3 F 90 16 131/64 97 04/24/19 18:28 98.1 F 89 16 135/78 97 - Laboratory Lab Statement: Any lab studies that have been ordered have been reviewed, and results considered in the medical decision making process. - EKG No standard instances Cardiac Rate: NL EKG Rhythm: Sinus Rhythm Summary of EKG Findings: sinus rhythm Complex Multi-Symp Course/Dx Course Of Treatment: 24-year-old male presents with potentially anxiety attack today. He states that he was standing when he developed palpitations. He states that he stepped away from studying and they resolved. He states they try to study happened again. States that try to study again and it came back again. Denies any chest or shortness of breath currently. He states he still feels a little anxious. Does not currently have palpitations. No nausea and vomiting. No recent illness. Has a history of asthma. On exam lungs CTA. Heart regular rate and rhythm. EKG shows sinus rhythm. gave hydroxyzine for anxiety. told follow up with [facility]. Patient understands and agrees with the plan. - Diagnoses Differential Diagnoses/HQI/PQRI: Metabolic Abnormality, Other - svt, arrhythmia Provider Diagnoses: Anxiety Discharge ED - Sign-Out/Discharge Documenting (check all that apply): Patient Departure - Discharge Plan Condition: Good Disposition: HOME Prescriptions: hydrOXYzine HCL TAB* [Atarax 25 MG TAB*] 25 mg PO TID PRN #15 tab PRN Reason: Anxiety Patient Education Materials: Anxiety (ED) Referrals: No Primary Care Phys,NOPCP [Primary Care Provider] - Additional Instructions: Practice deep breathing Take hydroxyzine up to three tablets daily for anxiety Follow up with [facility] Return if develop any new or worsening symptoms - Billing Disposition and Condition Condition: GOOD Disposition: Home
[2019-04-24 21:50] VITALS: BP 116/73
== END 2019-04-24 21:49 | disposition home or self-care (01) ==
LOC: ED 18:24
DX: F41.9 Anxiety disorder, unspecified (principal); J45.909 Unspecified asthma, uncomplicated
CPT/HCPCS: 93005; 99282; A9270-GY

== ENCOUNTER 2019-06-17 13:42 | Emergency (ER) | payer OTHER ==
[2019-06-17 14:08] LABS: ABS Lymphocytes 1.7 10^3/ul (1.0-4.8); ABS Monocytes 0.2 10^3/ul (0-0.8); ABS Neutrophils 1.1 10^3/ul (1.5-7.7); Eosinophil % 1.4 %; Hematocrit 45 % (42-52); Hemoglobin 15.7 g/dL (14.0-18.0); Lymphocyte % 56.5 %; Mean Corpuscular HGB Conc 35 g/dL (31-36); Mean Corpuscular Hemoglobin 29 pg (27-31); Mean Corpuscular Volume 84 fL (80-94); Mean Platelet Volume 8.8 fL (7.4-10.4); Nucleated Red Blood Cells % 0.2; Platelet Count 180 10^3/uL (150-450); Red Blood Count 5.37 10^6 /uL (4.18-5.48); Red Cell Distribution Width 13 % (10-15); White Blood Count 3.1 10^3/uL (3.5-10.8)
[2019-06-17 14:28] LABS: ALT 21 U/L (7-52); AST 17 U/L (13-39); Albumin 5.2 g/dL (3.2-5.2); Albumin/Globulin Ratio 1.9 (1-3); Alkaline Phosphatase 40 U/L (34-104); Anion Gap 8 mmol/L (2-11); Blood Urea Nitrogen 11 mg/dL (6-24); CO2 Carbon Dioxide 26 mmol/L (22-32); Calcium 10.3 mg/dL (8.6-10.3); Chloride 105 mmol/L (101-111); EGFR African American 124.5 (>60); EGFR Non-African American 102.9 (>60); Globulin 2.8 g/dL (2-4); Glucose 100 mg/dL (70-100); Potassium 3.8 mmol/L (3.5-5.0); Sodium 139 mmol/L (135-145); Troponin I 0.01 ng/mL (<0.03)
[2019-06-17] MEDS ORDERED: Ibuprofen TAB* 400 MG PO ONE (17:28)
--- NOTE | 2019-06-17 17:31 | ED ---
HPI Chest Pain - HPI Summary HPI Summary: The patient is a 24 year-old male presenting to [facility] with a chief complaint of left anterior chest pain onset three days ago. He reports that he has been suffering from the pain for the last few days, but the pain worsened while walking this morning, and he noticed a sharp pain that has been intermittent since onset. The pain does not radiate. He notes that he was recently here for similar symptoms a few days ago. He endorses dizziness. Symptoms are currently rated 5/10 in severity. He denies any calf swelling or tenderness. No history of blood clots, no cardiac history. Past medical history includes asthma, seasonal allergies. Nonsmoker, no EtOH, no substance use. Medications reviewed. Allergies noted. - History of Current Complaint Chief Complaint: EDChestPainROMI Time Seen by Provider: 06/17/19 17:12 Hx Obtained From: Patient Onset/Duration: Started Days Ago, Still Present Timing: Intermittent Initial Severity: Moderate Current Severity: Moderate Pain Intensity: 5 Pain Scale Used: 0-10 Numeric Chest Pain Location: Left Anterior Chest Pain Radiates: No Character: Sharp/Stabbing Aggravating Factor(s): Exertion Alleviating Factor(s): Rest Associated Signs and Symptoms: Positive: Chest Pain, Dizziness. Negative: Calf Pain/Swelling - Allergy/Home Medications Allergies/Adverse Reactions: Allergies Allergy/AdvReac Type Severity Reaction Status Date / Time No Known Allergies Allergy Verified 06/13/19 20:10 PMH/Surg Hx/FS Hx/Imm Hx Endocrine/Hematology History: Denies: Hx Diabetes, Hx Thyroid Disease Cardiovascular History: Denies: Hx Hypertension Respiratory History: Reports: Hx Asthma, Hx Seasonal Allergies Denies: Hx Chronic Obstructive Pulmonary Disease (COPD) GI History: Denies: Hx Ulcer - Surgical History Surgical History: Yes Surgery Procedure, Year, and Place: Janoplasty July 2018 - Immunization History Date of Tetanus Vaccine: utd Date of Influenza Vaccine: fall 2016 Infectious Disease History: No Infectious Disease History: Denies: Hx Hepatitis, Hx Human Immunodeficiency Virus (HIV), Traveled Outside the US in Last 30 Days - Family History Known Family History: Positive: Cardiac Disease - Social History Alcohol Use: None Hx Substance Use: No Substance Use Type: Reports: None Substance Use Comment - Amount & Last Used: Hx Tobacco Use: No Smoking Status (MU): Never Smoked Tobacco Review of Systems Positive: Chest Pain Negative: Myalgia - calf, Edema Neurological: Other - dizziness All Other Systems Reviewed And Are Negative: Yes Physical Exam - Summary Physical Exam Summary: Constitutional: Well-developed, Well-nourished, Alert. (-) Distressed Skin: Warm, Dry HENT: Normocephalic; Atraumatic Eyes: Conjunctiva normal Neck: Musculoskeletal ROM normal neck. (-) JVD, (-) Stridor, (-) Tracheal deviation Cardio: Rhythm regular, rate normal, Heart sounds normal; Intact distal pulses; The pedal pulses are 2+ and symmetric. Radial pulses are 2+ and symmetric. (-) Murmur Pulmonary/Chest wall: Effort normal. (-) Respiratory distress, (-) Wheezes, (-) Rales Abd: Soft, (-) tenderness, (-) Distension, (-) Guarding, (-) Rebound Musculoskeletal: (-) Edema Lymph: (-) Cervical adenopathy Neuro: Alert, Oriented x3 Psych: Mood and affect Normal Triage Information Reviewed: Yes Vital Signs On Initial Exam: Initial Vitals Temp Pulse Resp BP Pulse Ox 99.1 F 79 16 135/85 99 06/17/19 13:50 06/17/19 13:50 06/17/19 13:50 06/17/19 13:50 06/17/19 13:50 Vital Signs Reviewed: Yes Procedures - Sedation Patient Received Moderate/Deep Sedation with Procedure: No Diagnostics - Vital Signs Vital Signs Temp Pulse Resp BP Pulse Ox 06/17/19 16:28 98.1 F 71 16 95/66 99 06/17/19 13:50 99.1 F 79 16 135/85 99 - Laboratory Lab Results: Lab Results 06/17/19 06/17/19 06/17/19 Range/Units 13:59 13:59 13:59 WBC 3.1 L (3.5-10.8) 10^3/uL RBC 5.37 (4.18-5.48) 10^6 /uL Hgb 15.7 (14.0-18.0) g/dL Hct 45 (42-52) % MCV 84 (80-94) fL MCH 29 (27-31) pg MCHC 35 (31-36) g/dL RDW 13 (10-15) % Plt Count 180 (150-450) 10^3/uL MPV 8.8 (7.4-10.4) fL Neut % (Auto) 35.2 % Lymph % (Auto) 56.5 % [place] % (Auto) 6.4 % Eos % (Auto) 1.4 % Baso % (Auto) 0.5 % Absolute Neuts (auto) 1.1 L (1.5-7.7) 10^3/ul Absolute Lymphs (auto) 1.7 (1.0-4.8) 10^3/ul Absolute Monos (auto) 0.2 (0-0.8) 10^3/ul Absolute Eos (auto) 0.0 (0-0.6) 10^3/ul Absolute Basos (auto) 0.0 (0-0.2) 10^3/ul Absolute Nucleated RBC 0.0 10^3/ul Nucleated RBC % 0.2 INR (Anticoag Therapy) 1.00 (0.82-1.09) Sodium 139 (135-145) mmol/L Potassium 3.8 (3.5-5.0) mmol/L Chloride 105 (101-111) mmol/L Carbon Dioxide 26 (22-32) mmol/L Anion Gap 8 (2-11) mmol/L BUN 11 (6-24) mg/dL Creatinine 0.92 (0.67-1.17) mg/dL Est GFR ( Amer) 124.5 (>60) Est GFR (Non-Af Amer) 102.9 (>60) BUN/Creatinine Ratio 12.0 (8-20) Glucose 100 (70-100) mg/dL Calcium 10.3 (8.6-10.3) mg/dL Total Bilirubin 0.50 (0.2-1.0) mg/dL AST 17 (13-39) U/L ALT 21 (7-52) U/L Alkaline Phosphatase 40 (34-104) U/L Troponin I 0.01 (<0.03) ng/mL Total Protein 8.0 (6.4-8.9) g/dL Albumin 5.2 (3.2-5.2) g/dL Globulin 2.8 (2-4) g/dL Albumin/Globulin Ratio 1.9 (1-3) Result Diagrams: 06/17/19 13:59 06/17/19 13:59 Lab Statement: Any lab studies that have been ordered have been reviewed, and results considered in the medical decision making process. - Radiology CXR Radiology Interpretation Completed By: ED Physician Summary of Radiographic Findings: No acute disease. ED physician has reviewed and interpreted this report. Pending official read. - EKG 1343 Cardiac Rate: NL - 82 BPM EKG Rhythm: Sinus Rhythm Summary of EKG Findings: EKG at 1343 reveals normal sinus rhythm at 82 BPM, no ischemic changes. Dr. Germain has reviewed and interpreted this EKG. Re-Evaluation - Re-Evaluation First Eval Re-Evaluation Time: 18:30 Comment: We discussed results and plan for discharge. Chest Pain Course/Dx - Course Course Of Treatment: Patient is a 24 year-old male presenting with left anterior chest pain that does not radiate onset three days ago worsening today with intermittent sharp pains. He is otherwise asymptomatic. Physical exam is insignificant for acute abnormalities. Patient administered Motrin. Blood work obtained, results within normal limits. Negative troponin. An EKG at 1343 reveals normal sinus rhythm at 82 BPM, no ischemic changes. CXR is negative, per my interpretation. Patient is safe for discharge. Patient agreeable with plan. - Diagnoses Provider Diagnoses: Atypical chest pain Discharge ED - Sign-Out/Discharge Documenting (check all that apply): Patient Departure - Patient will be discharged home. - Discharge Plan Condition: Stable Disposition: HOME Patient Education Materials: Chest Pain (DC) Forms: *School Release Referrals: Care [facility] [Outside] - 3 Days Additional Instructions: Follow up with your primary care provider in 2-3 days. Return to the emergency department for any new or worsening symptoms. - Billing Disposition and Condition Condition: STABLE Disposition: Home - Attestation Statements Document Initiated by Abdiaziz: Yes Documenting Scribe: Norma Dotson Provider For Whom Abdiaziz is Documenting (Include Credential): Dr. Qamar Germain DO Scribe Attestation: Norma Dyson scribed for Dr. Qamar Germain DO on 06/17/19 at 0282. Scribe Documentation Reviewed: Yes Provider Attestation: The documentation as recorded by the Norma tejada accurately reflects the service I personally performed and the decisions made by me, Dr. Qamar Germain DO Status of Scribvladimir Document: Viewed
[2019-06-17 18:12] LABS: C Reactive Protein < 1.00 mg/L (<8.01)
[2019-06-17 18:27] VITALS: BP 125/80
[2019-06-17 22:47] LABS: Erythrocyte Sed Rate 3 mm/Hr (0-14)
== END 2019-06-17 18:33 | disposition home or self-care (01) ==
LOC: ED 13:42
DX: R07.89 Other chest pain (principal); R42 Dizziness and giddiness; J45.909 Unspecified asthma, uncomplicated; Z79.899 Other long term (current) drug therapy
CPT/HCPCS: 36415; 71045; 80053; 84484; 85025; 85610; 85652; 86140; 93005; 99282; A9270-GY

== ENCOUNTER 2019-06-24 00:01 | Emergency (ER) | payer OTHER ==
[2019-06-24] MEDS ORDERED: Albuterol/Ipratropium NEB.SOL* Albuterol 2.5 MG/Ipratropium 0.5 MG 3 ML INH ONE (01:57)
[2019-06-24 04:48] VITALS: BP 114/68
--- NOTE | 2019-06-24 05:14 | ED ---
Complex/Multi-Sys Presentation - HPI Summary HPI Summary: Patient is a 24 y/o M presenting to [facility] with complaints of SOB, light- headedness, and anxiety. He states that he has been experiencing light- headedness for the past few weeks. At around 2300 06/23/19 the patient was working out and felt near syncopal, SOB, and had CP with deep breaths. No similar previous episodes are noted. Afterwards, patient had onset of what he describes as a panic attack. He notes that he had a panic attack earlier in the day when he was walking to class as well. PMHx of asthma and allergies reported. He states that he has not had to use his asthma inhaler in over two years. Patient takes medications for his allergies. He denies recent changes to his routines or taking any supplements for exercising. Patient also notes that his right ear is painful. Home medications and allergies are reviewed. - History Of Current Complaint Chief Complaint: EDShortnessOfBreath Time Seen by Provider: 06/24/19 04:14 Hx Obtained From: Patient Onset/Duration: Lasting Weeks Timing: Intermittent, Lasting:, Weeks Severity Currently: None Location: Pain At: - chest, only with deep breaths Aggravating Factor(s): deep breaths aggravated CP Associated Signs And Symptoms: Positive: Syncope, SOB, Chest Pain - with deep breaths, Other - positive - panic attack, right ear pain - Allergies/Home Medications Allergies/Adverse Reactions: Allergies Allergy/AdvReac Type Severity Reaction Status Date / Time No Known Allergies Allergy Verified 06/24/19 00:10 PMH/Surg Hx/FS Hx/Imm Hx Endocrine/Hematology History: Denies: Hx Diabetes, Hx Thyroid Disease Cardiovascular History: Denies: Hx Hypertension Respiratory History: Reports: Hx Asthma, Hx Seasonal Allergies Denies: Hx Chronic Obstructive Pulmonary Disease (COPD) GI History: Denies: Hx Ulcer - Surgical History Surgery Procedure, Year, and Place: SeptJuly 2018 - Immunization History Date of Tetanus Vaccine: utd Date of Influenza Vaccine: fall 2016 Infectious Disease History: No Infectious Disease History: Denies: Hx Hepatitis, Hx Human Immunodeficiency Virus (HIV), Traveled Outside the US in Last 30 Days - Family History Known Family History: Positive: Cardiac Disease - Social History Alcohol Use: None Hx Substance Use: No Substance Use Type: Reports: None Substance Use Comment - Amount & Last Used: Hx Tobacco Use: No Smoking Status (MU): Never Smoked Tobacco - Additional Comments History Additional Comments: PMHx of asthma and allergies noted. Review of Systems Positive: Ear Ache Positive: Chest Pain Positive: Shortness Of Breath Neurological/Mental Status: Other - positive - light-headedness Positive: Anxious All Other Systems Reviewed And Are Negative: Yes Physical Exam Vital Signs On Initial Exam: Initial Vitals Temp Pulse Resp BP Pulse Ox 98.9 F 109 18 111/76 98 06/24/19 00:09 06/24/19 00:09 06/24/19 00:09 06/24/19 00:09 06/24/19 00:09 Procedures - Sedation Patient Received Moderate/Deep Sedation with Procedure: No Diagnostics - Vital Signs Vital Signs Temp Pulse Resp BP Pulse Ox 06/24/19 04:29 82 114/68 98 06/24/19 04:01 100 100 06/24/19 04:00 107 131/63 98 06/24/19 03:59 96 98 06/24/19 03:16 97.7 F 98 16 137/82 100 06/24/19 00:09 98.9 F 109 18 111/76 98 - Laboratory Lab Statement: Any lab studies that have been ordered have been reviewed, and results considered in the medical decision making process. Complex Multi-Symp Course/Dx Course Of Treatment: 24 year old male presents with sob and lightheadedness tonight after working out. describes then a panic attack. admits he has been having sob for weeks now. given a duoneb without relief. cxr normal. discussed findings wiht patient. he has been here multiple times for this. has been told he has anxiety. has started seeing a counselor. discharged to home. follow up pcp and counselor. follow up sooner for any worseing symptoms. During ED course , patient received a duoneb treatment. - Diagnoses Provider Diagnoses: Anxiety, Panic attack Discharge ED - Sign-Out/Discharge Documenting (check all that apply): Patient Departure - discharge - Discharge Plan Condition: Stable Disposition: HOME Patient Education Materials: Anxiety (ED), Panic Attack (ED) Referrals: [facility] Erickson ZAVALA [Primary Care Provider] - 3 Days Additional Instructions: PLEASE RETURN TO ED FOR ANY NEW OR WORSENING SYMPTOMS. PLEASE FOLLOW UP WITH YOUR PRIMARY CARE PHYSICIAN WITHIN THREE DAYS. - Billing Disposition and Condition Condition: STABLE Disposition: Home - Attestation Statements Document Initiated by Scribe: Yes Documenting Scribe: ADELFO VILCHIS Provider For Whom Kristelibe is Documenting (Include Credential): PORTER PHELPS MD Scribe Attestation: IADELFO, scribed for PORTER PHELPS MD on 06/27/19 at 2009. Scribe Documentation Reviewed: Yes Provider Attestation: The documentation as recorded by the ADELFO tejada accurately reflects the service I personally performed and the decisions made by me, PORTER PHELPS MD Status of Scribe Document: Viewed
== END 2019-06-24 05:04 | disposition home or self-care (01) ==
LOC: ED 00:01
DX: F41.9 Anxiety disorder, unspecified (principal); F41.0 Panic disorder [episodic paroxysmal anxiety]; R06.02 Shortness of breath; R42 Dizziness and giddiness; R55 Syncope and collapse; R07.9 Chest pain, unspecified; H92.09 Otalgia, unspecified ear
CPT/HCPCS: 71046; 99282; A9270-GY

== ENCOUNTER 2019-06-24 18:47 | Inpatient (IN) | payer OTHER ==
--- OUTSIDE RECORDS SUMMARY | 2019-06-24 18:57 | XMS REPORT | Continuity of Care Document ---
:1995 Author Organization [facility] Address [address] [place] [address] Care Team Providers Name Role Phone Zaid Fernandez MD Unavailable Unavailable Allergies, Adverse Reactions, Alerts Substance Reaction Status Substance Type Unknown Medications Medication Instructions Dosage Effective Dates (start - stop) Status Comments Drug Treatment Unknown Problems Condition Effective Dates (start - stop) Clinical Status Unknown Procedures Procedure Date TTE W/DOPPLER COMPLETE Results Test Name Date and Time Measure Units Reference Range Abnormal Flag Status Comments Unknown Encounters Encounter Practice Location Reason(s) Diagnoses Date Provider Providers Description For Visit Copied on Encounter [facility]2019 [facility]. [facility] Provider: , [address] [id number], [id number], [facility]. [place], tel:[phone]. [id number] tel:[phone] Family History Family Member Diagnosis Age At Onset Unknown Immunizations Vaccine Date Status Comments Immunization Unknown Payers Payer name Insurance type Covered green party ID Authorization(s) [facility] [id number] Social History Type Description Quantity Date Captured Comments Unknown Vital Signs Date / Height Weight BMI Pulse Blood Temperature Respiratory Body Head BMI Time: Rate Pressure Rate Surface Circumference percentile Area Unknown Chief Complaint And Reason For Visit No information Reason For Referral Reason For Referral Unknown Plan Of Care Date Type Action Status Unknown Date Type Problem Goal Intervention Status Start Date Unknown History Of Present Illness Encounter Date Complaint History Of Present Illness No information Functional Status Encounter Date Functional Assessment Cognitive Assessment Unknown Medications Administered Medication Instructions Dosage Effective Dates (start - stop) Status Comments Drug Treatment Unknown Instructions Date Instruction Additional Information Unknown
[2019-06-24 20:55] LABS: ABS Lymphocytes 1.9 10^3/ul (1.0-4.8); ABS Monocytes 0.4 10^3/ul (0-0.8); ABS Neutrophils 1.8 10^3/ul (1.5-7.7); Eosinophil % 0.9 %; Hematocrit 43 % (42-52); Hemoglobin 14.8 g/dL (14.0-18.0); Lymphocyte % 45.4 %; Mean Corpuscular HGB Conc 35 g/dL (31-36); Mean Corpuscular Hemoglobin 29 pg (27-31); Mean Corpuscular Volume 84 fL (80-94); Mean Platelet Volume 8.4 fL (7.4-10.4); Nucleated Red Blood Cells % 0.1; Platelet Count 199 10^3/uL (150-450); Red Blood Count 5.06 10^6 /uL (4.18-5.48); Red Cell Distribution Width 14 % (10-15); White Blood Count 4.2 10^3/uL (3.5-10.8)
[2019-06-24 21:20] LABS: ALT 23 U/L (7-52); AST 40 U/L (13-39); Albumin 4.6 g/dL (3.2-5.2); Albumin/Globulin Ratio 1.8 (1-3); Alkaline Phosphatase 40 U/L (34-104); Anion Gap 8 mmol/L (2-11); BUN/Creatinine Ratio 17.7 (8-20); Blood Urea Nitrogen 20 mg/dL (6-24); C Reactive Protein 4.51 mg/L (<8.01); CO2 Carbon Dioxide 28 mmol/L (22-32); Calcium 9.3 mg/dL (8.6-10.3); Chloride 104 mmol/L (101-111); EGFR African American 98.2 (>60); EGFR Non-African American 81.1 (>60); Globulin 2.5 g/dL (2-4); Glucose 87 mg/dL (70-100); Magnesium 2.4 mg/dL (1.9-2.7); Potassium 3.8 mmol/L (3.5-5.0); Sodium 140 mmol/L (135-145); Total Protein 7.1 g/dL (6.4-8.9)
[2019-06-24 21:21] LABS: HCG Pregnancy < 0.60 mIU/mL
[2019-06-24 21:36] LABS: TSH (Thyroid Stimulating Horm) 1.05 mcIU/mL (0.34-5.60)
[2019-06-24 21:41] LABS: Creatine Kinase 3746 U/L (10-223)
[2019-06-24] MEDS: NS 0.9% 1000 ML** 2,000 ML IV ONE ×2 (22:45→23:43)
--- NOTE | 2019-06-24 22:45 | ED ---
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 He had chest pains a week ago which have since resolved. Patient denies sore throat , cough, fever, and ear problems. No PMHx of diabetes or hypercholesterolemia. No SocHx of smoking or drinking. The patient rates the pain 0/10 in severity. Symptoms aggravated by nothing. Symptoms alleviated by nothing. - History Of Current Complaint Chief Complaint: EDDizziness Time Seen by Provider: 06/24/19 22:17 Hx Obtained From: Patient Onset/Duration: Lasting Days - 2 weeks, Still Present Aggravating Factor(s): nothing Alleviating Factor(s): nothing Associated Signs And Symptoms: Positive: Other - positive- lethargy and diziness with episodes of near syncope, negative - sore throat, ear problems. Negative: Cough, Fever - Allergies/Home Medications Allergies/Adverse Reactions: Allergies Allergy/AdvReac Type Severity Reaction Status Date / Time No Known Allergies Allergy Verified 06/24/19 00:10 Home Medications: Home Medications Cetirizine* [ZyrTEC 10 MG TAB*] 5 mg PO DAILY 06/24/19 [History Confirmed ] hydrOXYzine HCL TAB* [Atarax 25 MG TAB*] 10 mg PO QID 06/25/19 [History Confirmed 06/25/19] PMH/Surg Hx/FS Hx/Imm Hx Endocrine/Hematology History: Denies: Hx Diabetes, Hx Thyroid Disease Cardiovascular History: Denies: Hx Hypertension Respiratory History: Reports: Hx Asthma, Hx Seasonal Allergies, Other Respiratory Problems/Disorders - HX PNA Denies: Hx Chronic Obstructive Pulmonary Disease (COPD) GI History: Denies: Hx Ulcer - Surgical History Surgery Procedure, Year, and Place: July 2018 - Immunization History Date of Tetanus Vaccine: utd Date of Influenza Vaccine: fall 2016 Infectious Disease History: No Infectious Disease History: Denies: Hx Hepatitis, Hx Human Immunodeficiency Virus (HIV), Traveled Outside the US in Last 30 Days - Family History Known Family History: Positive: Cardiac Disease - Social History Alcohol Use: None Hx Substance Use: No Substance Use Type: Reports: None Substance Use Comment - Amount & Last Used: Hx Tobacco Use: No Smoking Status (MU): Never Smoked Tobacco Review of Systems Negative: Fever Negative: Sore Throat, Ear Ache Negative: Cough Neurological/Mental Status: Other - lethargy and dizziness Negative: Syncope - episodes of near syncope All Other Systems Reviewed And Are Negative: Yes Physical Exam - Summary Physical Exam Summary: VITAL SIGNS: Reviewed. GENERAL: Patient is a well-developed and nourished male who is lying comfortable in the stretcher. Patient is not in any acute respiratory distress. HEAD AND FACE: No signs of trauma. No ecchymosis, hematomas or skull depressions. No sinus tenderness. EYES: PERRLA, EOMI x 2, No injected conjunctiva, no nystagmus. EARS: Hearing grossly intact. Ear canals and tympanic membranes are within normal limits. MOUTH: Oropharynx within normal limits. NECK: Supple, trachea is midline, no adenopathy, no JVD, no carotid bruit, no c- spine tenderness, neck with full ROM. CHEST: Symmetric, no tenderness at palpation. LUNGS: Clear to auscultation bilaterally. No wheezing or crackles. CVS: Regular rate and rhythm, S1 and S2 present, no murmurs or gallops appreciated. ABDOMEN: Soft, non-tender. No signs of distention. No rebound, no guarding, and no masses palpated. Bowel sounds are normal. EXTREMITIES: FROM in all major joints, no edema, no cyanosis or clubbing. NEURO: Alert and oriented x 3. No acute neurological deficits. Speech is normal and follows commands. SKIN: Dry and warm. IF PSYCHIATRIC/MENTAL HEALTH ADD THE FOLLOWING TO THE GENERAL NML EXAM: PSYCH: Depressed, quiet, and denies any suicidal thoughts or plan. No homicidal thoughts or plan. No signs of psychosis or pressure speech. No tangential speech. Triage Information Reviewed: Yes Vital Signs On Initial Exam: Initial Vitals Temp Pulse Resp BP Pulse Ox 98.1 F 88 18 124/82 97 06/24/19 18:48 06/24/19 18:48 06/24/19 18:48 06/24/19 18:48 06/24/19 18:48 Vital Signs Reviewed: Yes Procedures - Sedation Patient Received Moderate/Deep Sedation with Procedure: No Diagnostics - Vital Signs Vital Signs Temp Pulse Resp BP Pulse Ox 06/24/19 21:03 98 F 75 18 127/66 98 06/24/19 18:48 98.1 F 88 18 124/82 97 - Laboratory Lab Results: Lab Results 06/24/19 06/24/19 06/24/19 Range/Units 20:31 20:31 20:31 WBC 4.2 (3.5-10.8) 10^3/uL RBC 5.06 (4.18-5.48) 10^6 /uL Hgb 14.8 (14.0-18.0) g/dL Hct 43 (42-52) % MCV 84 (80-94) fL MCH 29 (27-31) pg MCHC 35 (31-36) g/dL RDW 14 (10-15) % Plt Count 199 (150-450) 10^3/uL MPV 8.4 (7.4-10.4) fL Neut % (Auto) 43.4 % Lymph % (Auto) 45.4 % [place] % (Auto) 10.0 % Eos % (Auto) 0.9 % Baso % (Auto) 0.3 % Absolute Neuts (auto) 1.8 (1.5-7.7) 10^3/ul Absolute Lymphs (auto) 1.9 (1.0-4.8) 10^3/ul Absolute Monos (auto) 0.4 (0-0.8) 10^3/ul Absolute Eos (auto) 0.0 (0-0.6) 10^3/ul Absolute Basos (auto) 0.0 (0-0.2) 10^3/ul Absolute Nucleated RBC 0.0 10^3/ul Nucleated RBC % 0.1 Sodium 140 (135-145) mmol/L Potassium 3.8 (3.5-5.0) mmol/L Chloride 104 (101-111) mmol/L Carbon Dioxide 28 (22-32) mmol/L Anion Gap 8 (2-11) mmol/L BUN 20 (6-24) mg/dL Creatinine 1.13 (0.67-1.17) mg/dL Est GFR ( Amer) 98.2 (>60) Est GFR (Non-Af Amer) 81.1 (>60) BUN/Creatinine Ratio 17.7 (8-20) Glucose 87 (70-100) mg/dL Lactic Acid 1.1 (0.5-2.0) mmol/L Calcium 9.3 (8.6-10.3) mg/dL Magnesium 2.4 (1.9-2.7) mg/dL Total Bilirubin 0.50 (0.2-1.0) mg/dL AST 40 H (13-39) U/L ALT 23 (7-52) U/L Alkaline Phosphatase 40 (34-104) U/L Total Creatine Kinase 3746 H (10-223) U/L Troponin I 0.00 (<0.03) ng/mL C-Reactive Protein 4.51 (<8.01) mg/L Total Protein 7.1 (6.4-8.9) g/dL Albumin 4.6 (3.2-5.2) g/dL Globulin 2.5 (2-4) g/dL Albumin/Globulin Ratio 1.8 (1-3) TSH 1.05 (0.34-5.60) mcIU/mL Beta HCG, Quant < 0.60 mIU/mL Result Diagrams: 06/24/19 20:31 06/26/19 06:18 Lab Statement: Any lab studies that have been ordered have been reviewed, and results considered in the medical decision making process. - Radiology CXR Radiology Interpretation Completed By: ED Physician Summary of Radiographic Findings: Impression: no acute process. Pending official report. - EKG 2008 Summary of EKG Findings: EKG at 2008 reveals normal sinus rhythm at a rate of [address] elevation and normal axis. has reviewed and interpreted this EKG. Complex Multi-Symp Course/Dx Assessment/Plan: 24 year old M [facility] by female nursing unit coordinator complains of lethargy and dizziness with episodes of near syncope for the past 2 weeks. He had chest pains a week ago which have since resolved. Patient denies sore throat, cough, fever, and ear problems. No PMHx of diabetes or hypercholesterolemia. No SocHx of smoking or drinking. The patient rates the pain 0/10 in severity. Symptoms aggravated by nothing. Symptoms alleviated by nothing. In the ED course the patient was placed in a quality assurance monitor chassis, IV access was obtained, IV fluids started. EKG at 2008 reveals normal sinus rhythm at a rate of [address] elevation and normal axis. Chest x-ray revealed no acute process. Blood test w/o a significant abnormality except for CPK 3746 and AST 40. Patient reports that he has been working out heavily for the last couple days. In the ED course the patient was given 2 L of IV fluids. Second CPK has increased to 4274. I ordered an additional IVF. I discussed the case with Dr. Lee and accepted the patient for admission. - Diagnoses Provider Diagnoses: Rhabdomyolysis - Physician Notifications Discussed Care Of Patient With: Kenny Lee - admit Time Discussed With Above Provider: 02:52 Instructed by Provider To: Admit As Inpatient Discharge ED - Sign-Out/Discharge Documenting (check all that apply): Patient Departure - admit - Discharge Plan Condition: Stable Disposition: ADMITTED TO [facility] - Billing Disposition and Condition Condition: STABLE Disposition: Admitted to [facility] - Attestation Statements Document Initiated by Kristelibe: Yes Documenting Scribe: Neal Tate Provider For Whom Abdiaziz is Documenting (Include Credential): Dr.Walter Leonides MD Scribe Attestation: INeal, scribed for Dr.Walter Leonides MD on 06/26/19 at 2035. Scribe Documentation Reviewed: Yes Provider Attestation: The documentation as recorded by the scribeNeal accurately reflects the service I personally performed and the decisions made by me, Dr.Walter Leonides MD Status of Scribe Document: Viewed
[2019-06-25 01:12] LABS: Urine Appearance Clear; Urine Bilirubin Negative (Negative); Urine Blood Negative (Negative); Urine Color Yellow; Urine Glucose Negative (Negative); Urine Ketones Negative (Negative); Urine Nitrite Negative (Negative); Urine Protein Negative (Negative); Urine Specific Gravity 1.018 (1.010-1.030); Urine Urobilinogen Negative (Negative)
[2019-06-25 01:24] LABS: Urine Benzodiazepine Screen None Detected (None Detect); Urine Opiates Screen None Detected (None Detect)
[2019-06-25] MEDS: NS 0.9% 1000 ML** 2,000 ML IV ONE (02:52)
[2019-06-25] MEDS ORDERED: NS 0.9% 1000 ML** 1,000 ML IV SCH (03:45)
--- NOTE | 2019-06-25 06:27 | HP ---
ADMISSION HISTORY AND PHYSICAL: DATE OF ADMISSION: 06/25/19 CHIEF COMPLAINT: Anxiety attack. HISTORY OF PRESENT ILLNESS: This is a 24-year-old male with past medical history of asthma and allergies, only taking p.r.n. cetirizine and Atarax, came in due to anxiety attack and muscle soreness. The patient stated that he was in his usual state of health up until yesterday when he decided after many months to go to the gym and do some weightlifting and he had worked out heavily and this evening he started having shortness of breath and dizziness and lethargy and also noticed a decreased amount of urine output, but no urinary burning sensation or pain with urination. No other sick contacts. No fever, chills. The patient was otherwise stable. However, in ER, the patient was noted to have elevated CPK, which was worsening even after IV fluid administration, so it was recommended for admission. PAST MEDICAL HISTORY: As mentioned, asthma and allergies. PAST SURGICAL HISTORY: He had a deviated septum surgery as a child. REVIEW OF SYSTEMS: A 14-point review of systems did not reveal any new information other than what is mentioned in the HPI. SOCIAL HISTORY: The patient denies smoking, alcohol or drugs. He studies at [employer], with his parents living close to [facility]. FAMILY HISTORY: Father, aged 52, had heart surgery due to aortic valve repair from a childhood rheumatic heart disease. Mother is otherwise healthy at age 42. HOME MEDICATIONS: As mentioned, 1. Hydroxyzine 10 mg 4 times a day. 2. Zyrtec 5 mg oral daily. ALLERGIES: No known drug allergies, but does have seasonal allergies. PHYSICAL EXAMINATION VITAL SIGNS: In ER, temperature was noted to be 98.9 at max, BP was 129/78, heart rate 86, respiration rate 20, saturating 100% on room air. GENERAL: The patient is awake, alert and oriented x3. He does not appear to be in any acute distress. HEENT: Atraumatic, normocephalic. Bilateral pupils reactive. Oral mucosa was moist. NECK: Supple. No jugular venous distention. HEART: S1, S2. Regular rate and rhythm. LUNGS: Clear to auscultation bilaterally. No wheezing, rhonchi, or rales. ABDOMEN: Soft, nontender, nondistended. EXTREMITIES: No cyanosis, clubbing or edema. DIAGNOSTIC STUDIES/LABORATORY DATA: CBC was unremarkable. Comprehensive metabolic panel was unremarkable with the exception of total creatine kinase, which was initially elevated at 3746, and on the repeat labs, was noted to be 4276. On the computer, the lab result was mistakenly backdated, even with the new lab was supposed to be on 06/25/19 at post midnight. Portable chest x-ray was otherwise clear. Official read by Radiology is still pending. EKG showed sinus rhythm at 79 beats per minute without any ST elevation. When compared to his older EKG from 2 weeks ago, it was otherwise unremarkable. IMPRESSION: This is a 24-year-old male here with anxiety attack noted to have incidental finding of elevated CPK, which was worsening even after IV fluid administration. ASSESSMENT AND PLAN: 1. Rhabdomyolysis secondary to heavy workout. We will continue with IV hydration and repeating CPK. 2. History of anxiety. We will restart his Atarax. 3. History of allergies. Restart his cetirizine. 4. DVT prophylaxis. Encourage early ambulation. [id number]/[facility] #: [id number] [facility]
[2019-06-25 08:41] LABS: BUN/Creatinine Ratio 16.3 (8-20); Calcium 8.4 mg/dL (8.6-10.3); EGFR African American 124.5 (>60); EGFR Non-African American 102.9 (>60); Potassium 3.6 mmol/L (3.5-5.0)
[2019-06-25 08:44] LABS: CKMB ng/mL 25.9 ng/mL (0.6-6.3)
[2019-06-25] MEDS ORDERED: hydrOXYzine HCL TAB* 10 MG PO SCH (09:00)
[2019-06-25] MEDS ORDERED: Cetirizine* 10 MG TAB PO SCH (09:00)
--- NOTE | 2019-06-25 09:50 | PN ---
Subjective Date of Service: 06/25/19 Interval History: Pt c/o "sore back muscles", although he c/o SOB earlier on to RN, now denies SOB Objective Active Medications: Hydroxyzine HCl (Atarax Tab*) 10 mg PO QID PRN PRN Reason: ANXIETY Sodium Chloride (Ns 0.9% 1000 Ml) 1,000 mls @ 200 mls/hr IV PER RATE WENCESLAO Vital Signs - 8 hr 06/25/19 06/25/19 06/25/19 02:22 02:24 02:25 Temperature Pulse Rate 92 73 Respiratory Rate Blood Pressure 115/65 120/74 (mmHg) O2 Sat by Pulse 95 99 Oximetry 06/25/19 06/25/19 06/25/19 02:27 02:29 03:00 Temperature Pulse Rate 72 68 84 Respiratory Rate Blood Pressure 123/79 123/68 (mmHg) O2 Sat by Pulse 97 98 Oximetry 06/25/19 06/25/19 06/25/19 03:22 04:06 04:21 Temperature 97.9 F Pulse Rate 86 73 Respiratory 20 Rate Blood Pressure 129/78 130/75 146/82 (mmHg) O2 Sat by Pulse 100 99 Oximetry 06/25/19 06/25/19 06/25/19 04:49 05:15 07:51 Temperature 97.6 F 97.9 F 96.9 F Pulse Rate 66 73 77 Respiratory 20 20 Rate Blood Pressure 146/82 130/75 113/67 (mmHg) O2 Sat by Pulse 99 99 99 Oximetry 06/25/19 09:26 Temperature Pulse Rate Respiratory 16 Rate Blood Pressure (mmHg) O2 Sat by Pulse Oximetry Oxygen Devices in Use Now: None Appearance: 24 yo M in nAD, aAOx3 Eyes: No Scleral Icterus, PERRLA Ears/Nose/Mouth/Throat: NL Teeth, Lips, Gums, Mucous Membranes Moist Neck: NL Appearance and Movements; NL JVP, Trachea Midline Respiratory: Symmetrical Chest Expansion and Respiratory Effort, Clear to Auscultation Cardiovascular: NL Sounds; No Murmurs; No JVD, RRR Abdominal: NL Sounds; No Tenderness; No Distention, - - back musculature-tender to palpation Lymphatic: No Cervical Adenopathy Extremities: No Edema, No Clubbing, Cyanosis Skin: No Rash or Ulcers, No Nodules or Sclerosis Neurological: Alert and Oriented x 3, NL Muscle Strength and Tone Result Diagrams: 06/24/19 20:31 02 08:14 Additional Lab and Data: Lab Results 06/24/19 06/24/19 06/24/19 Range/Units 20:31 20:31 20:31 WBC 4.2 (3.5-10.8) 10^3/uL RBC 5.06 (4.18-5.48) 10^6 /uL Hgb 14.8 (14.0-18.0) g/dL Hct 43 (42-52) % MCV 84 (80-94) fL MCH 29 (27-31) pg MCHC 35 (31-36) g/dL RDW 14 (10-15) % Plt Count 199 (150-450) 10^3/uL MPV 8.4 (7.4-10.4) fL Neut % (Auto) 43.4 % Lymph % (Auto) 45.4 % [place] % (Auto) 10.0 % Eos % (Auto) 0.9 % Baso % (Auto) 0.3 % Absolute Neuts (auto) 1.8 (1.5-7.7) 10^3/ul Absolute Lymphs (auto) 1.9 (1.0-4.8) 10^3/ul Absolute Monos (auto) 0.4 (0-0.8) 10^3/ul Absolute Eos (auto) 0.0 (0-0.6) 10^3/ul Absolute Basos (auto) 0.0 (0-0.2) 10^3/ul Absolute Nucleated RBC 0.0 10^3/ul Nucleated RBC % 0.1 Sodium 140 (135-145) mmol/L Potassium 3.8 (3.5-5.0) mmol/L Chloride 104 (101-111) mmol/L Carbon Dioxide 28 (22-32) mmol/L Anion Gap 8 (2-11) mmol/L BUN 20 (6-24) mg/dL Creatinine 1.13 (0.67-1.17) mg/dL Est GFR ( Amer) 98.2 (>60) Est GFR (Non-Af Amer) 81.1 (>60) BUN/Creatinine Ratio 17.7 (8-20) Glucose 87 (70-100) mg/dL Lactic Acid 1.1 (0.5-2.0) mmol/L Calcium 9.3 (8.6-10.3) mg/dL Magnesium 2.4 (1.9-2.7) mg/dL Total Bilirubin 0.50 (0.2-1.0) mg/dL AST 40 H (13-39) U/L ALT 23 (7-52) U/L Alkaline Phosphatase 40 (34-104) U/L Total Creatine Kinase 3746 H (10-223) U/L Troponin I 0.00 (<0.03) ng/mL C-Reactive Protein 4.51 (<8.01) mg/L Total Protein 7.1 (6.4-8.9) g/dL Albumin 4.6 (3.2-5.2) g/dL Globulin 2.5 (2-4) g/dL Albumin/Globulin Ratio 1.8 (1-3) TSH 1.05 (0.34-5.60) mcIU/mL Beta HCG, Quant < 0.60 mIU/mL Assess/Plan/Problems-Billing Assessment: 24 yo M exercised in a gym and came to ED c/o SOB and muscle aches - Patient Problems (1) Rhabdomyolysis Comment: secondary to exercise cont IVF, recheck labs in AM (2) DVT prophylaxis Comment: ambulation encouraged Status and Disposition: OBV
[2019-06-25] MEDS: NS 0.9% 1000 ML** 1,000 ML IV SCH ×3 (13:00→23:47)
[2019-06-25] MEDS: hydrOXYzine HCL TAB* 10 MG PO PRN ×2 (15:12→20:19)
[2019-06-26] MEDS: NS 0.9% 1000 ML** 1,000 ML IV SCH ×3 (05:16→17:39)
[2019-06-26 06:59] LABS: BUN/Creatinine Ratio 9.6 (8-20); Calcium 8.6 mg/dL (8.6-10.3); EGFR African American 140.2 (>60); EGFR Non-African American 115.9 (>60); Potassium 3.8 mmol/L (3.5-5.0)
[2019-06-26 07:03] LABS: CKMB ng/mL 19.5 ng/mL (0.6-6.3)
--- NOTE | 2019-06-26 09:48 | PN ---
Subjective Date of Service: 06/26/19 Interval History: Pt c/o lightheadedness x 2 weeks and intermittent SOB. Objective Active Medications: Hydroxyzine HCl (Atarax Tab*) 10 mg PO QID PRN PRN Reason: ANXIETY Last Admin: 06/25/19 15:12 Dose: 10 mg Sodium Chloride (Ns 0.9% 1000 Ml) 1,000 mls @ 200 mls/hr IV PER RATE WENCESLAO Last Admin: 06/26/19 05:16 Dose: 200 mls/hr Vital Signs - 8 hr 06/26/19 06/26/19 06/26/19 03:15 07:15 07:34 Temperature 97.5 F 98.0 F Pulse Rate 62 68 Respiratory 16 16 16 Rate Blood Pressure 114/77 112/65 (mmHg) O2 Sat by Pulse 99 99 Oximetry 06/26/19 08:46 Temperature 96.5 F Pulse Rate 49 Respiratory 14 Rate Blood Pressure 110/66 (mmHg) O2 Sat by Pulse 100 Oximetry Oxygen Devices in Use Now: None Appearance: 24 yo M in nAD, aAOx3 Eyes: No Scleral Icterus, PERRLA Ears/Nose/Mouth/Throat: NL Teeth, Lips, Gums, Mucous Membranes Moist Neck: NL Appearance and Movements; NL JVP, Trachea Midline Respiratory: Symmetrical Chest Expansion and Respiratory Effort, Clear to Auscultation Cardiovascular: NL Sounds; No Murmurs; No JVD, RRR Abdominal: NL Sounds; No Tenderness; No Distention Lymphatic: No Cervical Adenopathy Extremities: No Edema Skin: No Rash or Ulcers Neurological: Alert and Oriented x 3 Result Diagrams: 06/24/19 20:31 06/26/19 06:18 Additional Lab and Data: Lab Results 06/24/19 06/24/19 06/24/19 Range/Units 20:31 20:31 20:31 WBC 4.2 (3.5-10.8) 10^3/uL RBC 5.06 (4.18-5.48) 10^6 /uL Hgb 14.8 (14.0-18.0) g/dL Hct 43 (42-52) % MCV 84 (80-94) fL MCH 29 (27-31) pg MCHC 35 (31-36) g/dL RDW 14 (10-15) % Plt Count 199 (150-450) 10^3/uL MPV 8.4 (7.4-10.4) fL Neut % (Auto) 43.4 % Lymph % (Auto) 45.4 % [place] % (Auto) 10.0 % Eos % (Auto) 0.9 % Baso % (Auto) 0.3 % Absolute Neuts (auto) 1.8 (1.5-7.7) 10^3/ul Absolute Lymphs (auto) 1.9 (1.0-4.8) 10^3/ul Absolute Monos (auto) 0.4 (0-0.8) 10^3/ul Absolute Eos (auto) 0.0 (0-0.6) 10^3/ul Absolute Basos (auto) 0.0 (0-0.2) 10^3/ul Absolute Nucleated RBC 0.0 10^3/ul Nucleated RBC % 0.1 Sodium 140 (135-145) mmol/L Potassium 3.8 (3.5-5.0) mmol/L Chloride 104 (101-111) mmol/L Carbon Dioxide 28 (22-32) mmol/L Anion Gap 8 (2-11) mmol/L BUN 20 (6-24) mg/dL Creatinine 1.13 (0.67-1.17) mg/dL Est GFR ( Amer) 98.2 (>60) Est GFR (Non-Af Amer) 81.1 (>60) BUN/Creatinine Ratio 17.7 (8-20) Glucose 87 (70-100) mg/dL Lactic Acid 1.1 (0.5-2.0) mmol/L Calcium 9.3 (8.6-10.3) mg/dL Magnesium 2.4 (1.9-2.7) mg/dL Total Bilirubin 0.50 (0.2-1.0) mg/dL AST 40 H (13-39) U/L ALT 23 (7-52) U/L Alkaline Phosphatase 40 (34-104) U/L Total Creatine Kinase 3746 H (10-223) U/L Troponin I 0.00 (<0.03) ng/mL C-Reactive Protein 4.51 (<8.01) mg/L Total Protein 7.1 (6.4-8.9) g/dL Albumin 4.6 (3.2-5.2) g/dL Globulin 2.5 (2-4) g/dL Albumin/Globulin Ratio 1.8 (1-3) TSH 1.05 (0.34-5.60) mcIU/mL Beta HCG, Quant < 0.60 mIU/mL Assess/Plan/Problems-Billing Assessment: 24 yo M exercised in a gym and came to ED c/o SOB and muscle aches - Patient Problems (1) Rhabdomyolysis Comment: secondary to exercise cont IVF, recheck labs in AM -CPK still increasing, but at a slower rate, hopefully will be able to go home tomorrow (2) Light-headed feeling Comment: x 2 weeks check orthostatics ambulation encouraged (3) DVT prophylaxis Comment: ambulation encouraged
[2019-06-26] MEDS ORDERED: Docusate CAP* 100 MG PO PRN (21:22)
[2019-06-27] MEDS: NS 0.9% 1000 ML** 1,000 ML IV SCH ×5 (00:15→19:20)
[2019-06-27 08:13] LABS: BUN/Creatinine Ratio 9.7 (8-20); Calcium 8.8 mg/dL (8.6-10.3); EGFR African American 122.9 (>60); EGFR Non-African American 101.6 (>60); Potassium 3.9 mmol/L (3.5-5.0)
[2019-06-27] MEDS ORDERED: Saline NASAL SPRAY 0.65%* BTL BOTH NARES PRN (11:22)
--- NOTE | 2019-06-27 11:23 | PN ---
Subjective Date of Service: 06/27/19 Interval History: Pt feels well, c/o occasional lightheadedness in the past 2 weeks after dx of sinusitis. Denies nasal congestion or headache Objective Active Medications: Docusate Sodium (Colace Cap*) 100 mg PO BID PRN PRN Reason: CONSTIPATION Last Admin: 06/26/19 21:44 Dose: 100 mg Hydroxyzine HCl (Atarax Tab*) 10 mg PO QID PRN PRN Reason: ANXIETY Last Admin: 06/25/19 15:12 Dose: 10 mg Sodium Chloride (Ns 0.9% 1000 Ml) 1,000 mls @ 200 mls/hr IV PER RATE WENCESLAO Last Admin: 06/27/19 09:20 Dose: 200 mls/hr Vital Signs - 8 hr 06/27/19 06/27/19 07:15 07:36 Temperature 96.8 F Pulse Rate 55 Respiratory 16 16 Rate Blood Pressure 98/61 (mmHg) O2 Sat by Pulse 99 Oximetry Oxygen Devices in Use Now: None Appearance: 24 yo M in nAD, AAOx3 Eyes: No Scleral Icterus, PERRLA Ears/Nose/Mouth/Throat: NL Teeth, Lips, Gums, Mucous Membranes Moist Neck: NL Appearance and Movements; NL JVP, Trachea Midline Respiratory: Symmetrical Chest Expansion and Respiratory Effort, Clear to Auscultation Cardiovascular: NL Sounds; No Murmurs; No JVD, RRR Abdominal: NL Sounds; No Tenderness; No Distention Lymphatic: No Cervical Adenopathy Extremities: No Edema Skin: No Rash or Ulcers, No Nodules or Sclerosis Neurological: Alert and Oriented x 3, NL Muscle Strength and Tone Result Diagrams: 06/24/19 20:31 06/27/19 06:59 Additional Lab and Data: Lab Results 06/24/19 06/24/19 06/24/19 Range/Units 20:31 20:31 20:31 WBC 4.2 (3.5-10.8) 10^3/uL RBC 5.06 (4.18-5.48) 10^6 /uL Hgb 14.8 (14.0-18.0) g/dL Hct 43 (42-52) % MCV 84 (80-94) fL MCH 29 (27-31) pg MCHC 35 (31-36) g/dL RDW 14 (10-15) % Plt Count 199 (150-450) 10^3/uL MPV 8.4 (7.4-10.4) fL Neut % (Auto) 43.4 % Lymph % (Auto) 45.4 % [place] % (Auto) 10.0 % Eos % (Auto) 0.9 % Baso % (Auto) 0.3 % Absolute Neuts (auto) 1.8 (1.5-7.7) 10^3/ul Absolute Lymphs (auto) 1.9 (1.0-4.8) 10^3/ul Absolute Monos (auto) 0.4 (0-0.8) 10^3/ul Absolute Eos (auto) 0.0 (0-0.6) 10^3/ul Absolute Basos (auto) 0.0 (0-0.2) 10^3/ul Absolute Nucleated RBC 0.0 10^3/ul Nucleated RBC % 0.1 Sodium 140 (135-145) mmol/L Potassium 3.8 (3.5-5.0) mmol/L Chloride 104 (101-111) mmol/L Carbon Dioxide 28 (22-32) mmol/L Anion Gap 8 (2-11) mmol/L BUN 20 (6-24) mg/dL Creatinine 1.13 (0.67-1.17) mg/dL Est GFR ( Amer) 98.2 (>60) Est GFR (Non-Af Amer) 81.1 (>60) BUN/Creatinine Ratio 17.7 (8-20) Glucose 87 (70-100) mg/dL Lactic Acid 1.1 (0.5-2.0) mmol/L Calcium 9.3 (8.6-10.3) mg/dL Magnesium 2.4 (1.9-2.7) mg/dL Total Bilirubin 0.50 (0.2-1.0) mg/dL AST 40 H (13-39) U/L ALT 23 (7-52) U/L Alkaline Phosphatase 40 (34-104) U/L Total Creatine Kinase 3746 H (10-223) U/L Troponin I 0.00 (<0.03) ng/mL C-Reactive Protein 4.51 (<8.01) mg/L Total Protein 7.1 (6.4-8.9) g/dL Albumin 4.6 (3.2-5.2) g/dL Globulin 2.5 (2-4) g/dL Albumin/Globulin Ratio 1.8 (1-3) TSH 1.05 (0.34-5.60) mcIU/mL Beta HCG, Quant < 0.60 mIU/mL Assess/Plan/Problems-Billing Assessment: 24 yo M exercised in a gym and came to ED c/o SOB and muscle aches - Patient Problems (1) Rhabdomyolysis Comment: secondary to exercise cont IVF, recheck labs in AM -CPK still increasing, but at a slower rate (2) Light-headed feeling Comment: x 2 weeks SBP low, but not orthostatic ambulation encouraged will try nasal saline spray to treat possible congestion (3) DVT prophylaxis Comment: ambulation encouraged Status and Disposition: OBV
[2019-06-27] MEDS: hydrOXYzine HCL TAB* 10 MG PO PRN (18:19)
[2019-06-28] MEDS: NS 0.9% 1000 ML** 1,000 ML IV SCH ×4 (00:24→22:38)
[2019-06-28] MEDS: hydrOXYzine HCL TAB* 10 MG PO PRN (05:10)
[2019-06-28] MEDS: Ciproflox/Dexameth OTIC.SUSP* 7.5 ML BTL BOTH EARS SCH ×2 (14:30→22:37)
--- NOTE | 2019-06-28 16:31 | PN ---
Subjective Date of Service: 06/28/19 Interval History: Still feeling lightheaded. Otherwise is feeling okay, is walking the hallway. Eating/drinking okay, is urinating a lot, noticed puffy hands. Objective Active Medications: Amoxicillin/Clavulanate Potassium (Augmentin Tab*) 500 mg PO BID [facility] Ciprofloxacin/Dexamethasone (Ciprodex Otic.Susp*) 4 drop BOTH EARS BID WENCESLAO Last Admin: 06/28/19 14:30 Dose: 4 drop Docusate Sodium (Colace Cap*) 100 mg PO BID PRN PRN Reason: CONSTIPATION Last Admin: 06/26/19 21:44 Dose: 100 mg Hydroxyzine HCl (Atarax Tab*) 10 mg PO QID PRN PRN Reason: ANXIETY Last Admin: 06/28/19 05:10 Dose: 10 mg Sodium Chloride (Ns 0.9% 1000 Ml) 1,000 mls @ 200 mls/hr IV PER RATE [facility] Sodium Chloride (Sodium Chloride 0.65% Nasal [place]*) 1 spray BOTH NARES Q4H PRN PRN Reason: CONGESTION Last Admin: 06/27/19 12:19 Dose: 1 spray Vital Signs - 8 hr 06/28/19 06/28/19 06/28/19 10:35 10:39 11:15 Temperature 97.4 F 97.9 F Pulse Rate 55 76 Respiratory 16 16 18 Rate Blood Pressure 104/73 134/73 (mmHg) O2 Sat by Pulse 100 100 Oximetry 06/28/19 15:15 Temperature 97.6 F Pulse Rate 99 Respiratory 16 Rate Blood Pressure 138/87 (mmHg) O2 Sat by Pulse 98 Oximetry Oxygen Devices in Use Now: None Appearance: alert, well appearing Eyes: No Scleral Icterus Ears/Nose/Mouth/Throat: NL Teeth, Lips, Gums, Mucous Membranes Moist, - - external auditory canals are erythematous with TM erythema Neck: NL Appearance and Movements; NL JVP Respiratory: Symmetrical Chest Expansion and Respiratory Effort Cardiovascular: NL Sounds; No Murmurs; No JVD Abdominal: NL Sounds; No Tenderness; No Distention, No Hepatosplenomegaly Lymphatic: No Cervical Adenopathy Extremities: No Edema Skin: No Rash or Ulcers Result Diagrams: 06/24/19 20:31 06/27/19 06:59 Additional Lab and Data: Lab Results 06/24/19 06/24/19 06/24/19 Range/Units 20:31 20:31 20:31 WBC 4.2 (3.5-10.8) 10^3/uL RBC 5.06 (4.18-5.48) 10^6 /uL Hgb 14.8 (14.0-18.0) g/dL Hct 43 (42-52) % MCV 84 (80-94) fL MCH 29 (27-31) pg MCHC 35 (31-36) g/dL RDW 14 (10-15) % Plt Count 199 (150-450) 10^3/uL MPV 8.4 (7.4-10.4) fL Neut % (Auto) 43.4 % Lymph % (Auto) 45.4 % [place] % (Auto) 10.0 % Eos % (Auto) 0.9 % Baso % (Auto) 0.3 % Absolute Neuts (auto) 1.8 (1.5-7.7) 10^3/ul Absolute Lymphs (auto) 1.9 (1.0-4.8) 10^3/ul Absolute Monos (auto) 0.4 (0-0.8) 10^3/ul Absolute Eos (auto) 0.0 (0-0.6) 10^3/ul Absolute Basos (auto) 0.0 (0-0.2) 10^3/ul Absolute Nucleated RBC 0.0 10^3/ul Nucleated RBC % 0.1 Sodium 140 (135-145) mmol/L Potassium 3.8 (3.5-5.0) mmol/L Chloride 104 (101-111) mmol/L Carbon Dioxide 28 (22-32) mmol/L Anion Gap 8 (2-11) mmol/L BUN 20 (6-24) mg/dL Creatinine 1.13 (0.67-1.17) mg/dL Est GFR ( Amer) 98.2 (>60) Est GFR (Non-Af Amer) 81.1 (>60) BUN/Creatinine Ratio 17.7 (8-20) Glucose 87 (70-100) mg/dL Lactic Acid 1.1 (0.5-2.0) mmol/L Calcium 9.3 (8.6-10.3) mg/dL Magnesium 2.4 (1.9-2.7) mg/dL Total Bilirubin 0.50 (0.2-1.0) mg/dL AST 40 H (13-39) U/L ALT 23 (7-52) U/L Alkaline Phosphatase 40 (34-104) U/L Total Creatine Kinase 3746 H (10-223) U/L Troponin I 0.00 (<0.03) ng/mL C-Reactive Protein 4.51 (<8.01) mg/L Total Protein 7.1 (6.4-8.9) g/dL Albumin 4.6 (3.2-5.2) g/dL Globulin 2.5 (2-4) g/dL Albumin/Globulin Ratio 1.8 (1-3) TSH 1.05 (0.34-5.60) mcIU/mL Beta HCG, Quant < 0.60 mIU/mL Assess/Plan/Problems-Billing Assessment: 24 yo M exercised in a gym and came to ED c/o SOB and muscle aches - Patient Problems (1) Rhabdomyolysis Current Visit: Yes Status: Acute Code(s): M62.82 - RHABDOMYOLYSIS SNOMED Code(s): 030679218 Comment: secondary to exercise I discontinued IVF this morning and rechecked CK and it went up I am restarting the saline and will recheck tomorrow morning (2) DVT prophylaxis Current Visit: Yes Status: Acute Code(s): Z29.9 - ENCOUNTER FOR PROPHYLACTIC MEASURES, UNSPECIFIED SNOMED Code(s): 362426701 Comment: ambulatory (3) Light-headed feeling Current Visit: Yes Status: Acute Code(s): R42 - DIZZINESS AND GIDDINESS SNOMED Code(s): 003910896 Comment: external auditory canals are quite erythematous despite him not inserting anything in to them will treat with ciprodex drops and also augmentin for otitis media and externa Status and Disposition: CK still not decreasing off IVF
[2019-06-28] MEDS: Amoxicillin/Clavulanate TAB* 500 MG PO SCH (22:36)
[2019-06-29] MEDS: NS 0.9% 1000 ML** 1,000 ML IV SCH (03:37)
[2019-06-29 06:59] LABS: ABS Lymphocytes 2.1 10^3/ul (1.0-4.8); ABS Monocytes 0.4 10^3/ul (0-0.8); ABS Neutrophils 1.3 10^3/ul (1.5-7.7); Eosinophil % 1.1 %; Hematocrit 42 % (42-52); Hemoglobin 14.7 g/dL (14.0-18.0); Lymphocyte % 55.1 %; Mean Corpuscular HGB Conc 35 g/dL (31-36); Mean Corpuscular Hemoglobin 30 pg (27-31); Mean Corpuscular Volume 84 fL (80-94); Mean Platelet Volume 8.8 fL (7.4-10.4); Nucleated Red Blood Cells % 0.1; Platelet Count 183 10^3/uL (150-450); Red Cell Distribution Width 14 % (10-15); White Blood Count 3.8 10^3/uL (3.5-10.8)
[2019-06-29 07:06] LABS: Calcium 9.1 mg/dL (8.6-10.3); Potassium 3.5 mmol/L (3.5-5.0)
[2019-06-29 07:12] LABS: BUN/Creatinine Ratio 9.5 (8-20); EGFR African American 138.3 (>60); EGFR Non-African American 114.3 (>60)
[2019-06-29] MEDS: Amoxicillin/Clavulanate TAB* 500 MG PO SCH (10:55)
[2019-06-29] MEDS: Ciproflox/Dexameth OTIC.SUSP* 7.5 ML BTL BOTH EARS SCH (10:58)
[2019-06-29 15:35] VITALS: BP 121/72
--- NOTE | 2019-06-29 19:15 | DS ---
CC: [facility] * DISCHARGE SUMMARY: DATE OF ADMISSION: 06/25/19 DATE OF DISCHARGE: 06/29/19 PRIMARY CARE PHYSICIAN: [facility] PRINCIPAL DISCHARGE DIAGNOSES: 1. Rhabdomyolysis. 2. Otitis externa and interna. SECONDARY DISCHARGE DIAGNOSES: 1. Anxiety. 2. Asthma. MEDICATIONS FOR DISCHARGE: 1. Cetirizine 5 mg daily. 2. Hydroxyzine 10 mg q.i.d. PHYSICAL EXAMINATION: Temperature 98.1, heart rate 81, respiratory rate 16, pulse ox 100% on room air, blood pressure 121/72. General: Alert, well- appearing young man, in no distress, walks in the hallways comfortably. HEENT: Pupils equal, round, reactive to light. Oral mucosa is moist. His external auditory canal are both erythematous. His tympanic membranes are also erythematous. Neck: No JVP. No adenopathy. Chest: Regular rate and rhythm with no murmurs. Lungs are clear bilaterally. Abdomen: Soft, nontender, nondistended. Liver tip is not palpable. No CVA tenderness. Extremities: No edema, rashes, or ulcers. No thigh or large muscle group tenderness. LABORATORY DATA: Pertinent labs at the time of discharge, his CK is 3297. His peak CK was 9186. His discharge creatinine is 0.84. HOSPITAL COURSE BY PROBLEM: 1. Rhabdomyolysis, exercise induced. Mr. Whitaker had recently gone back to the gym for the first time, after not exercising for some time and developed muscle aches and shortness of breath, so he came to the emergency department where he was found to have an elevated CK. His renal function remains normal and he actually had normal urinalysis, so he was admitted for hydration and his CK continued to up- trend until 2 days prior to admission. His IV fluids were discontinued to ensure that he could maintain a downtrending CK with oral hydration and indeed he was on the day of discharge, 06/29/19. He was encouraged to stay hydrated over the next couple of days and weeks and not to exercise until he follows up with [facility] and gets a re-draw of his CK to be sure it has normalized. Even when he does go back to exercising, I encouraged him to start lightly and gradually and avoid heavy lifting. I gave him my office phone number in case he should have any difficulty getting in to see someone at [facility]. 2. Otitis externa and interna. He had been complaining of lightheadedness and dizziness and reported that he had recently received prescription for URI that he did not complete. I looked in his ears and he has otitis externa and interna I believe, so I treated him with Augmentin while he was here as well as Ciprodex drops. He has 3 more days of Augmentin tablets at home that I encouraged him to complete the course. 3. Seasonal allergies. Continue cetirizine. DISPOSITION: Mr. Whitaker is being discharged to his home at [place]. He will follow up with [facility]. CONDITION AT THE TIME OF DISCHARGE: Stable. [id number] #: [id number] [id number]
== END 2019-06-29 17:00 | disposition home or self-care (01) | DRG 351 ==
LOC: ED 18:47 → MED 06-25 03:45
PROVIDERS: ADMIT Internal Medicine; ATTEND Internal Medicine
DX: M62.82 Rhabdomyolysis (principal); J45.909 Unspecified asthma, uncomplicated; F41.9 Anxiety disorder, unspecified; R42 Dizziness and giddiness; H60.93 Unspecified otitis externa, bilateral; H83.03 Labyrinthitis, bilateral; Z79.899 Other long term (current) drug therapy
CPT/HCPCS: 36415; 71046; 80048; 80053; 80307; 81003; 82550; 82553; 83605; 83735; 84443; 84484; 84702; 85025; 86140; 93005; 99284; A9270-GY; G0480

== ENCOUNTER 2019-07-24 22:43 | Emergency (ER) | payer OTHER ==
[2019-07-25] MEDS ORDERED: NS 0.9% 1000 ML** 1,000 ML IV ONE (00:02)
[2019-07-25 00:37] VITALS: BP 127/86
[2019-07-25 00:54] LABS: ABS Lymphocytes 1.7 10^3/ul (1.0-4.8); ABS Monocytes 0.4 10^3/ul (0-0.8); ABS Neutrophils 1.3 10^3/ul (1.5-7.7); Eosinophil % 0.6 %; Hematocrit 46 % (42-52); Hemoglobin 15.8 g/dL (14.0-18.0); Lymphocyte % 49.6 %; Mean Corpuscular HGB Conc 34 g/dL (31-36); Mean Corpuscular Hemoglobin 30 pg (27-31); Mean Corpuscular Volume 87 fL (80-94); Mean Platelet Volume 8.8 fL (7.4-10.4); Nucleated Red Blood Cells % 0.1; Platelet Count 193 10^3/uL (150-450); Red Cell Distribution Width 15 % (10-15); White Blood Count 3.5 10^3/uL (3.5-10.8)
[2019-07-25 01:06] LABS: Albumin 4.8 g/dL (3.2-5.2); Albumin/Globulin Ratio 2.1 (1-3); BUN/Creatinine Ratio 17.5 (8-20); Calcium 9.7 mg/dL (8.6-10.3); EGFR African American 109.3 (>60); EGFR Non-African American 90.3 (>60); Globulin 2.3 g/dL (2-4); Magnesium 2.3 mg/dL (1.9-2.7); Potassium 4.3 mmol/L (3.5-5.0); Total Bilirubin 0.8 mg/dL (0.2-1.0); Total Protein 7.1 g/dL (6.4-8.9)
--- NOTE | 2019-07-25 01:11 | ED ---
Dizziness - HPI Summary HPI Summary: 24 year old Male presents with lightheadedness today. He states his symptoms are worse when standing up. He states he feels better laying down. He is concerned that he has a history of rhado a couple weeks ago. He states he has been exercising since. He feels that he has not been staying hydrated. He denies any muscle aches. No headache. No visual changes. No weakness. He denies any chest pain or shortness of breath. No fevers. No recent illness. - History Of Current Complaint Chief Complaint: EDGeneral Stated Complaint: LIGHT HEADED PER PT Time Seen by Provider: 07/24/19 23:57 - Allergies/Home Medications Allergies/Adverse Reactions: Allergies Allergy/AdvReac Type Severity Reaction Status Date / Time No Known Allergies Allergy Verified 06/24/19 00:10 Home Medications: Home Medications Cetirizine* [ZyrTEC 10 MG TAB*] 5 mg PO DAILY 06/24/19 [History Confirmed ] hydrOXYzine HCL TAB* [Atarax 25 MG TAB*] 10 mg PO QID 06/25/19 [History Confirmed 06/25/19] Amoxicillin/Clavulanate TAB* [Augmentin TAB 500 mg*] 500 mg PO BID #6 tab [Rx] Ciproflox/Dexameth OTIC.SUSP* [Ciprodex OTIC.SUSP*] 2 drop .SEE ORDER BID #1 btl 06/29/19 [Rx] PMH/Surg Hx/FS Hx/Imm Hx Endocrine/Hematology History: Denies: Hx Diabetes, Hx Thyroid Disease Cardiovascular History: Denies: Hx Hypertension Respiratory History: Reports: Hx Asthma, Hx Seasonal Allergies, Other Respiratory Problems/Disorders - HX PNA Denies: Hx Chronic Obstructive Pulmonary Disease (COPD) GI History: Denies: Hx Ulcer - Surgical History Surgery Procedure, Year, and Place: July 2018 - Immunization History Date of Tetanus Vaccine: utd Date of Influenza Vaccine: fall 2016 Infectious Disease History: No Infectious Disease History: Denies: Hx Hepatitis, Hx Human Immunodeficiency Virus (HIV), Traveled Outside the [place] in Last 30 Days - Family History Known Family History: Positive: Cardiac Disease - Social History Alcohol Use: None Hx Substance Use: No Substance Use Type: Reports: None Substance Use Comment - Amount & Last Used: Thursday Hx Tobacco Use: No Smoking Status (MU): Never Smoked Tobacco Review of Systems Negative: Fever Negative: Chest Pain Negative: Shortness Of Breath Neurological/Mental Status: Other - dizziness All Other Systems Reviewed And Are Negative: Yes Physical Exam Triage Information Reviewed: Yes Vital Signs On Initial Exam: Initial Vitals Temp Pulse Resp BP Pulse Ox 98.9 F 86 16 148/80 96 07/24/19 22:48 07/24/19 22:48 07/24/19 22:48 07/24/19 22:48 07/24/19 22:48 Vital Signs Reviewed: Yes Appearance: Positive: Well-Appearing Skin: Positive: Warm, Dry Head/Face: Positive: Normal Head/Face Inspection Eyes: Positive: Normal, Conjunctiva Clear ENT: Positive: Pharynx normal Respiratory/Lung Sounds: Positive: Clear to Auscultation, Breath Sounds Present Cardiovascular: Positive: Normal, RRR Abdomen Description: Positive: Nontender, Soft Bowel Sounds: Positive: Present Musculoskeletal: Positive: Normal Neurological: Positive: Sensory/Motor Intact, Alert, Oriented to Person Place, Time, CN Intact II-III Psychiatric: Positive: Normal Procedures - Sedation Patient Received Moderate/Deep Sedation with Procedure: No Diagnostics - Vital Signs Vital Signs Temp Pulse Resp BP Pulse Ox 07/25/19 00:35 84 127/86 07/24/19 22:48 98.9 F 86 16 148/80 96 - Laboratory Lab Results: Lab Results 07/25/19 07/25/19 07/25/19 Range/Units 00:30 00:30 00:30 WBC 3.5 (3.5-10.8) 10^3/uL RBC 5.30 (4.18-5.48) 10^6 /uL Hgb 15.8 (14.0-18.0) g/dL Hct 46 (42-52) % MCV 87 (80-94) fL MCH 30 (27-31) pg MCHC 34 (31-36) g/dL RDW 15 (10-15) % Plt Count 193 (150-450) 10^3/uL MPV 8.8 (7.4-10.4) fL Neut % (Auto) 37.0 % Lymph % (Auto) 49.6 % Mccreary % (Auto) 12.3 % Eos % (Auto) 0.6 % Baso % (Auto) 0.5 % Absolute Neuts (auto) 1.3 L (1.5-7.7) 10^3/ul Absolute Lymphs (auto) 1.7 (1.0-4.8) 10^3/ul Absolute Monos (auto) 0.4 (0-0.8) 10^3/ul Absolute Eos (auto) 0.0 (0-0.6) 10^3/ul Absolute Basos (auto) 0.0 (0-0.2) 10^3/ul Absolute Nucleated RBC 0.0 10^3/ul Nucleated RBC % 0.1 Sodium 136 (135-145) mmol/L Potassium 4.3 (3.5-5.0) mmol/L Chloride 101 (101-111) mmol/L Carbon Dioxide 28 (22-32) mmol/L Anion Gap 7 (2-11) mmol/L BUN 18 (6-24) mg/dL Creatinine 1.03 (0.67-1.17) mg/dL Est GFR ( Amer) 109.3 (>60) Est GFR (Non-Af Amer) 90.3 (>60) BUN/Creatinine Ratio 17.5 (8-20) Glucose 77 (70-100) mg/dL Lactic Acid 1.2 (0.5-2.0) mmol/L Calcium 9.7 (8.6-10.3) mg/dL Magnesium 2.3 (1.9-2.7) mg/dL Total Bilirubin 0.80 (0.2-1.0) mg/dL AST 26 (13-39) U/L ALT 24 (7-52) U/L Alkaline Phosphatase 38 (34-104) U/L Total Creatine Kinase 779 H (10-223) U/L Troponin I 0.00 (<0.03) ng/mL Total Protein 7.1 (6.4-8.9) g/dL Albumin 4.8 (3.2-5.2) g/dL Globulin 2.3 (2-4) g/dL Albumin/Globulin Ratio 2.1 (1-3) TSH Pending Result Diagrams: 07/25/19 00:30 07/25/19 00:30 Lab Statement: Any lab studies that have been ordered have been reviewed, and results considered in the medical decision making process. - EKG No standard instances Cardiac Rate: NL EKG Rhythm: Sinus Rhythm EKG Comparison: No Significant Change Summary of EKG Findings: sinus rhythm, early repolarization Re-Evaluation - Re-Evaluation First Eval Re-Evaluation Time: 01:23 Change: Improved Comment: feeling better Dizzy Course/Dx - Course Course Of Treatment: 24 year old Male presents with lightheadedness today. He states his symptoms are worse when standing up. He states he feels better laying down. He is concerned that he has a history of rhado a couple weeks ago. He states he has been exercising since. He feels that he has not been staying hydrated. He denies any muscle aches. No headache. No visual changes. No weakness. He denies any chest pain or shortness of breath. No fevers. No recent illness. On exam has normal neuro exam. Orthostatic vitals are normal. Creatinine kinase is 779 which is not 5x the upper limit. Gave fluids and feeling better. Told to limit exercise and drink plenty of fluids. told to follow up with [facility]. Patient understands and agrees with the plan. - Diagnoses Differential Diagnosis/HQI/PQRI: Hypovolemia, Metabolic Abnormality, Other - orthostatic Provider Diagnoses: Dizziness Discharge ED - Sign-Out/Discharge Documenting (check all that apply): Patient Departure - Discharge Plan Condition: Good Disposition: HOME Patient Education Materials: Lightheadedness (ED) Referrals: [facility] [Outside] [facility] Erickson ZAVALA [Primary Care Provider] - Additional Instructions: drink plenty of fluids Follow up with [facility] Return to ED if develop any new or worsening symptoms - Billing Disposition and Condition Condition: GOOD Disposition: Home
[2019-07-25 01:42] LABS: TSH (Thyroid Stimulating Horm) 1.4 mcIU/mL (0.34-5.60)
== END 2019-07-25 01:34 | disposition home or self-care (01) ==
LOC: ED 22:43
DX: R42 Dizziness and giddiness (principal)
CPT/HCPCS: 36415; 80053; 82550; 83605; 83735; 84443; 84484; 85025; 93005; 96360; 99284